=== PATIENT | female | born 1995 | race Two or more races ===

== ENCOUNTER 2020-10-13 22:49 | Inpatient (IN) | payer OTHER ==
[~2020-10-13] VITALS: Ht 149.9 cm; Wt 47.0 kg
[2020-10-14] VITALS (17 sets, daily range): BP systolic 101–129; BP diastolic 60–93
[2020-10-14 00:21] LABS: BASO % 0.3 % (0.0-1.0); HEMATOCRIT 36.6 % (36.0-47.0); LYMPH # 4.6 10^3/uL (1.5-5.0); LYMPH % 40.8 % (24.0-44.0); MEAN CORPUSCULAR HEMOGLOBIN 30.8 pg (27.0-33.0); MEAN CORPUSCULAR HGB CONC 35.5 g/dl (32.0-36.5); MEAN CORPUSCULAR VOLUME 86.7 fl (80.0-96.0); MONO # 1.2 10^3/uL (0.0-0.8); MONO % 10.2 % (0.0-5.0); NEUTROPHILS # 5.5 10^3/uL (1.5-8.5); NEUTROPHILS % 48.3 % (36.0-66.0); RED BLOOD COUNT 4.22 10^6/uL (4.00-5.40); WHITE BLOOD COUNT 11.3 10^3/uL (4.0-10.0)
[2020-10-14 00:35] LABS: INR 1.01; PROTHROMBIN TIME 13.5 SECONDS (12.5-14.3)
[2020-10-14 00:36] LABS: PARTIAL THROMBOPLASTIN TIME 29.9 SECONDS (24.2-38.5)
[2020-10-14 00:39] LABS: PLATELET COUNT, AUTOMATED 2 10^3/uL (150-450)
[2020-10-14 00:43] LABS: BLOOD UREA NITROGEN 13 MG/DL (7-18); CARBON DIOXIDE LEVEL 30 MEQ/L (21-32); CHLORIDE LEVEL 103 MEQ/L (98-107); CREATININE FOR GFR 0.58 MG/DL (0.55-1.30); GLOMERULAR FILTRATION RATE > 60.0 (>60); GLUCOSE, FASTING 100 MG/DL (70-100); HCG, SERUM QUALITATIVE NEGATIVE (NEGATIVE); POTASSIUM SERUM 4.1 MEQ/L (3.5-5.1); SODIUM LEVEL 139 MEQ/L (136-145)
[2020-10-14] MEDS ORDERED: dexameTHASONE 20MG/5ML VIAL (J1100 PER 1MG) IV ONE (01:30)
[2020-10-14] MEDS ORDERED: MOM 30ML SUSPENSION UDC PO PRN (02:00)
[2020-10-14] MEDS ORDERED: MAALOX 30 ML SUSP *UDC PO PRN (02:00)
[2020-10-14] MEDS ORDERED: ACETAMINOPHEN TAB 650MG DOSE (2X325MG) PO PRN (02:00)
--- NOTE | 2020-10-14 02:02 | HPEPDOC ---
[facility] Medical History & Physical Date of Admission Oct 14, 2020 Date of Service: Oct 14, 2020 Attending Physician: JOHNATHAN ARELLANO MD History and Physical TIME OF SERVICE: 2:55 AM CHIEF COMPLAINT: Bleeding nose and gums HISTORY OF PRESENT ILLNESS: History was obtained from the patient's mother because the patient has a developmental disability. This 25-year-old female has a history of thrombocytopenia. According to the patient's mother she's had 3 other major episodes of bleeding nose and gums. This first episode occurred while they were living in [place] and the patient had to be hospitalized for over a month. During the second episode, the patient had bruising and was hospitalized for short period of time in the [facility]. The third time the patient was treated on an outpatient basis at a facility in [place]. The patient's mother was unable to provide additional details or definitive diagnosis. REVIEW OF SYSTEMS: 12 point review of systems negative except as listed in HPI PAST MEDICAL/ SURGICAL HISTORY: Thrombocytopenia. Developed mental disability "Large kidney" Tooth extraction SOCIAL HISTORY: She doesn't smoke, drink or use recreational drugs FAMILY HISTORY: The patient's mother has had a DVT. Mitral valve repair, coronary artery disease, asthma, type 2 diabetes and CVA ALLERGIES: Please see below HOME MEDICATIONS: Please see below PHYSICAL EXAMINATION: VITAL SIGNS: Please see below GEN: well-nourished / well developed/ slightly anxious INTEGUMENT: not flushed HEENT: Lips and nares are covered with small amounts of blood CVS: RRR/NMRG/ radial pulses intact / no lower extremity edema LUNGS: lungs are clear to auscultation bilaterally on room air ABDOMEN: Contour (flat) / soft & she doesn't grimace with palpation MSK/EXTREMITIES: NCAT PSYCH: alert LABORATORY DATA: See below. IMAGING: Ultrasound of the abdomen "IMPRESSION: 1. Mild splenomegaly. 2. Possible cyst or dilated calyx in the left kidney. " MICROBIOLOGY: Please see below. ASSESSMENT: Ms. 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 PLAN: 1. Thrombocytopenia She has splenomegaly , but doesn't have coexisting anemia Plan: Admit to medical floor/2 units of platelets have been ordered/ Dr. Bello discussed the case with Dr. Duncan, who recommended platelets, IVIG 1 g/kg, Decadron 14 mg IV daily, and will see the patient tomorrow 2. Epistaxis Unable to order tranexamic acid because there is is a family history of DVT DVT PROPHYLAXIS: SCDs DISPOSITION: home after more than 2 midnight's stay Vital Signs Vital Signs Date Time Temp Pulse Resp B/P (MAP) Pulse Ox O2 Delivery O2 Flow Rate FiO2 10/13/20 23:15 10/13/20 22:51 98.7 87 16 99 Room Air Laboratory Data Labs 24H Laboratory Tests 2 10/14/20 00:07: Immature Granulocyte % (Auto) 0.4, Neutrophils (%) (Auto) 48.3, Lymphocytes (%) (Auto) 40.8, Monocytes (%) (Auto) 10.2H, Eosinophils (%) (Auto) 0.0, Basophils (%) (Auto) 0.3, Neutrophils # (Auto) 5.5, Lymphocytes # (Auto) 4.6, Monocytes # (Auto) 1.2H, Eosinophils # (Auto) 0.0, Basophils # (Auto) 0.0, Nucleated Red Blood Cells % (auto) 0.0, Immature Platelet Fraction 10.5H, Prothrombin Time 13.5, Prothromb Time International Ratio 1.01, Activated Partial Thromboplast Time 29.9, Anion Gap 6L, Glomerular Filtration Rate > 60.0, Calcium Level 9.0, Human Chorionic Gonadotropin, Qual NEGATIVE CBC/BMP Laboratory Tests 10/14/20 00:07 Home Medications Scheduled Dexamethasone (Dexamethasone) 4 Mg Tablet, 40 MG PO ASDIRECTED 10 tabs once on 10/17/20 Allergies Coded Allergies: No Known Allergies (Unverified , 10/13/20) A-FIB/CHADSVASC A-FIB History Current/History of A-Fib/PAF?: No Current PO Anticoag Therapy: No JOHNATHAN ARELLANO MD Oct 14, 2020 02:01
--- NOTE | 2020-10-14 02:45 | REPVR ---
PROCEDURE INFORMATION: Exam: US Abdomen; Limited Exam date and time: 10/14/2020 1:55 AM Age: 25 years old Clinical indication: Abnormal findings; Abnormal lab test; Other: Thrombocytopenia; Additional info: Thrombocytopenia, evaluation of spleen. TECHNIQUE: Imaging protocol: US abdomen. Real time ultrasound with image documentation. Limited exam focused on the region of clinical interest. COMPARISON: No relevant prior studies available. FINDINGS: Left kidney: Small cyst or dilated calyx in the lower pole of the left kidney measuring 1.5 cm. Left kidney is otherwise not well visualized due to overlying bowel gas. Spleen: Spleen is mildly enlarged measuring 9.1 x 7.7 x 8.9 cm with splenic volume of approximately 625 cc. IMPRESSION: 1. Mild splenomegaly. 2. Possible cyst or dilated calyx in the left kidney. COMMENTS: Consistent with the [employer]'s Incidental Findings Committee white paper (J Am Simba Radiol 2018): Any incidental renal lesion less than 1 cm or classified as too small to characterize, or any incidental cystic renal lesion characterized as simple-appearing, is likely benign. No follow-up imaging is recommended for these lesions per consensus recommendations based on imaging criteria. Electronically signed by: Chun Easton On 10/14/2020 02:45:24 AM
[2020-10-14] MEDS ORDERED: IMMUNE GLOBULIN 10% 10 GM, IMMUNE GLOBULIN 10% 40 GM in IV 1 EA IV ONE (03:00)
[2020-10-14 03:27] LABS: RSV AMPLIFICATION NEGATIVE (NEGATIVE)
[2020-10-14 06:34] LABS: HEMATOCRIT 35.6 % (36.0-47.0); HEMOGLOBIN 12.8 g/dl (12.0-15.5); MEAN CORPUSCULAR HEMOGLOBIN 31.4 pg (27.0-33.0); MEAN CORPUSCULAR VOLUME 87.3 fl (80.0-96.0); RED BLOOD COUNT 4.08 10^6/uL (4.00-5.40); WHITE BLOOD COUNT 24.8 10^3/uL (4.0-10.0)
[2020-10-14 06:36] LABS: PLATELET COUNT, AUTOMATED 6 10^3/uL (150-450)
[2020-10-14 07:05] LABS: ALBUMIN 4.1 GM/DL (3.2-5.2); ALT/SGPT 25 U/L (12-78); BILIRUBIN,TOTAL 0.7 MG/DL (0.2-1.0); BLOOD UREA NITROGEN 13 MG/DL (7-18); CALCIUM LEVEL 8.7 MG/DL (8.5-10.1); CARBON DIOXIDE LEVEL 29 MEQ/L (21-32); CHLORIDE LEVEL 103 MEQ/L (98-107); CREATININE FOR GFR 0.59 MG/DL (0.55-1.30); GLOMERULAR FILTRATION RATE > 60.0 (>60); GLUCOSE, FASTING 106 MG/DL (70-100); POTASSIUM SERUM 3.6 MEQ/L (3.5-5.1); SODIUM LEVEL 140 MEQ/L (136-145); TOTAL PROTEIN 7.1 GM/DL (6.4-8.2)
--- NOTE | 2020-10-14 11:38 | IPNPDOC ---
Text Note Date of Service The patient was seen on 10/14/20. NOTE SUBJECTIVE: Sitting up in bed having breakfast. Being fed by grandmom, calm and cooperative. Epistaxis and oral bleeding seems to have stopped. PHYSICAL EXAMINATION: VITAL SIGNS: Please see below. GEN: well-nourished / well developed INTEGUMENT: not flushed HEENT: NC/AT moist mucous membranes, no oral bleeding. No epistaxis. CVS: RRR/NMRG/ radial pulses intact / no lower extremity edema LUNGS: lungs are clear to auscultation bilaterally on room air ABDOMEN: Contour (flat) / soft & she doesn't grimace with palpation MSK/EXTREMITIES: NCAT PSYCH: alert LABORATORY DATA: See below. IMAGING: Ultrasound of the abdomen "IMPRESSION: 1. Mild splenomegaly. 2. Possible cyst or dilated calyx in the left kidney. " ASSESSMENT: Ms. 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 ITP with severe thrombocytopenia. She has splenomegaly , but doesn't have coexisting doesn't have anemia Dr. Bello discussed the case with Dr. Duncan, who recommended platelets, IVIG 1 g/kg ( 50 gm) x 2 doses. dexamethasone 40 mg, po daily x 4 days Will give dexa 1v as patient has trouble swallowing too many pills. Dr Duncan to see. Intellectual disability As per grandmom has the metal ability of a 9 year old. DVT prophylaxis: Early ambulation. VS,Fishbone, I+O VS, Fishbone, I+O Laboratory Tests 10/14/20 00:07 10/14/20 05:40 Vital Signs Date Time Temp Pulse Resp B/P (MAP) Pulse Ox O2 Delivery O2 Flow Rate FiO2 10/14/20 10:05 97.7 99 16 126/90 (102) 100 Room Air I&O- Last 24 Hours up to 6 AM 10/14/20 06:00 Intake Total 200 ml Balance 200 ml SHANTELL MTZ MD Oct 14, 2020 11:38
[2020-10-14] MEDS: dexameTHASONE 20MG/5ML VIAL (J1100 PER 1MG) IV SCH (14:11)
--- NOTE | 2020-10-14 19:22 | CR.PDOC ---
General Date of Consultation: Oct 14, 2020 Referring Provider: KD ENRIQUEZ DO Attending Physician: SHANTELL MTZ MD Consultation REASON FOR CONSULTATION/CHIEF COMPLAINT: Profound thrombocytopenia. HISTORY OF PRESENT ILLNESS: Ms. Paige Gardner is a 25-year-old woman, nonverbal with autism and cognitive dysfunction who is under the care of her paternal grandmother. She presented with epistaxis and gum bleeding on the day of admission. Her grandmother reports that the patient was treated for thrombocytopenia in 2011 and in 2016. On these 2 occasions, she was admitted to hospital for signi ficant thrombocytopenia. She was being followed regularly by her doctor in [place] after the last admission, and apparently blood counts have been fine. The patient and her grandmother moved to this area in summer of this year 2019, but has not seen a doctor since moving to this area. On admission, platelet count was noted to be 2 k/UL with a normal hemoglobin level and mild leukocytosis. She is currently admitted for this. She received platelet transfusion early this morning. Her grandmother reports that gum bleeding and epistaxis have resolved since admission. ALLERGIES: Please see below. HOME MEDICATIONS: Please see below. PAST MEDICAL HISTORY: Autism. Nonverbal. Cognitive dysfunction. PAST SURGICAL HISTORY: Dental extraction. FAMILY HISTORY: Paternal uncle has sickle cell. Family history on mother's side unknown. SOCIAL HISTORY: Lives with paternal grandmother and paternal uncle. Needs complete supervision of day-to-day activities. Paternal grandmother serves as caregiver. REVIEW OF SYSTEMS: History obtained from grandmother as patient is nonverbal. CONSTITUTIONAL: No fever. No night sweats. Good appetite. No chills. HEENT: Noted epistaxis and gum bleeding recently. No headaches. According to grandmother. CARDIOVASCULAR: No chest pains. RESPIRATORY: No cough. No shortness of breath. GENITOURINARY: No hematuria. The patient has not been noted to have menarche. MUSCULOSKELETAL: No joint or muscle achiness. GASTROINTESTINAL: No nausea nor vomiting. No constipation. No diarrhea. No abdominal pains. SKIN: No easy bruising. No skin rash. NEUROLOGICAL: No change in mental status. PSYCHIATRIC: No anxiety noted. HEMATOLOGIC/LYMPHATIC: Epistaxis and gum bleeding noted on day of admission. These have resolved since that time. . PHYSICAL EXAMINATION: VITAL SIGNS: Please see below. GENERAL APPEARANCE: Lying in bed, comfortable, able to follow simple instructions as given by grandmother. HEENT: Pinkish conjunctiva, anicteric sclerae. Atraumatic. Small area of dried blood on gums. No active bleeding on nares. RESPIRATORY: Lungs are clear. No rales, no rhonchi, no least. CARDIOVASCULAR: S1, S2, regular but slightly tachycardic. No murmur. No gallop. ABDOMEN: Soft, nontender, no guarding. Positive bowel sounds. No hepatosplenomegaly palpable. EXTREMITIES: No calf swelling, no calf tenderness, no pedal edema. No ecchymoses. No petechiae. NEUROLOGICAL: Alert, nonverbal. PSYCHIATRIC: Did not express anxiety, although was moaning at times in bed. LABORATORY DATA: Please see below. ASSESSMENT/PLAN: Significant thrombocytopenia with normal hemoglobin level and very mild leukocytosis. Likely ITP. PT, PTT normal. Kidney function normal. Peripheral smear review 10/14/2020 showed severe thrombocytopenia with erythrocytes appearing normal and leukocytosis associated with monocytosis. Abdominal ultrasound 10/14/2020 showed mildly enlarged spleen measuring 9.1 x 7 .7 x 8.9 cm. IVIG has been started. To be given for 2 days only at 1 g/kg each day. Dexamethasone has also been started. Correct dose is Dexamethasone 40 mg by mouth daily X4 days only. Continue daily CBC/platelet monitoring. Transfuse for platelet count less than 10. Expect platelet count to improve within the next few days, but may consider a bone marrow aspiration and biopsy if platelet count does not improve with IVIG and pulse dexamethasone. We will arrange a follow-up appointment as an outpatient once patient is discharged. Thank you for referring Ms. Paige Garnder. Vital Signs/I&O Vital Signs Date Time Temp Pulse Resp B/P (MAP) Pulse Ox O2 Delivery O2 Flow Rate FiO2 10/14/20 14:00 98.4 111 18 115/60 (78) 99 Room Air I&O- Last 24 Hours up to 6 AM 10/14/20 06:00 Intake Total 200 ml Balance 200 ml Laboratory Data Labs 24H Laboratory Tests 2 10/14/20 00:07: Immature Granulocyte % (Auto) 0.4, Neutrophils (%) (Auto) 48.3, Lymphocytes (%) (Auto) 40.8, Monocytes (%) (Auto) 10.2H, Eosinophils (%) (Auto) 0.0, Basophils (%) (Auto) 0.3, Neutrophils # (Auto) 5.5, Lymphocytes # (Auto) 4.6, Monocytes # (Auto) 1.2H, Eosinophils # (Auto) 0.0, Basophils # (Auto) 0.0, Nucleated Red Blood Cells % (auto) 0.0, Immature Platelet Fraction 10.5H, Prothrombin Time 13.5, Prothromb Time International Ratio 1.01, Activated Partial Thromboplast Ti me 29.9, Anion Gap 6L, Glomerular Filtration Rate > 60.0, Calcium Level 9.0, Human Chorionic Gonadotropin, Qual NEGATIVE 10/14/20 02:43: Coronavirus (COVID-19)(PCR) NEGATIVE, Influenza Type A (RT-PCR) NEGATIVE, Influenza Type B (RT-PCR) NEGATIVE, Respiratory Syncytial Virus (PCR) NEGATIVE 10/14/20 05:40: Nucleated Red Blood Cells % (auto) 0.0, Anion Gap 8, Glomerular Filtration Rate > 60.0, Calcium Level 8.7, Differential Slide Review Report, Peripheral Blood Smear Path Consult PERIPHERAL SMEAR, Total Bilirubin 0.7, Aspartate Amino Transf (AST/SGOT) 18, Alanine Aminotransferase (ALT/SGPT) 25, Alkaline Phosphatase 80, Total Protein 7.1, Albumin 4.1, Albumin/Globulin Ratio 1.4 CBC/BMP Laboratory Tests 10/14/20 00:07 10/14/20 05:40 Allergies Coded Allergies: No Known Allergies (Unverified , 10/13/20) Home Medications No Active Prescriptions or Reported Meds MACIEJ CHAVEZ MD Oct 14, 2020 19:22
[2020-10-15] VITALS (16 sets, daily range): BP systolic 113–138; BP diastolic 47–93
[2020-10-15] MEDS ORDERED: IMMUNE GLOBULIN 10% 0 GM in IV 1 EA IV ONE (05:00)
[2020-10-15 06:38] LABS: HEMATOCRIT 32.2 % (36.0-47.0); MEAN CORPUSCULAR HEMOGLOBIN 30.2 pg (27.0-33.0); MEAN CORPUSCULAR HGB CONC 34.2 g/dl (32.0-36.5); MEAN CORPUSCULAR VOLUME 88.5 fl (80.0-96.0); RED BLOOD COUNT 3.64 10^6/uL (4.00-5.40); WHITE BLOOD COUNT 22.5 10^3/uL (4.0-10.0)
[2020-10-15 06:39] LABS: PLATELET COUNT, AUTOMATED 18 10^3/uL (150-450)
[2020-10-15 06:59] LABS: BLOOD UREA NITROGEN 16 MG/DL (7-18); CALCIUM LEVEL 8.8 MG/DL (8.5-10.1); CARBON DIOXIDE LEVEL 29 MEQ/L (21-32); CHLORIDE LEVEL 109 MEQ/L (98-107); CREATININE FOR GFR 0.81 MG/DL (0.55-1.30); GLOMERULAR FILTRATION RATE > 60.0 (>60); GLUCOSE, FASTING 263 MG/DL (70-100); POTASSIUM SERUM 3.4 MEQ/L (3.5-5.1); SODIUM LEVEL 143 MEQ/L (136-145)
[2020-10-15] MEDS ORDERED: IMMUNE GLOBULIN 10% 10 GM, IMMUNE GLOBULIN 10% 40 GM in IV 1 EA IV ONE (09:00)
[2020-10-15] MEDS ORDERED: POTASSIUM CHLORIDE 10 MEQ SR TABLET PO ONE (09:00)
[2020-10-15] MEDS ORDERED: dexameTHASONE 20MG/5ML VIAL (J1100 PER 1MG) IV SCH (09:00)
[2020-10-15] MEDS ORDERED: LIDOCAINE 1% MDV 20ML VIAL As Ordered ONE (11:49)
[2020-10-15] MEDS: SODIUM CHLORIDE 0.9% INJ 10 ML SYR IV SCH (12:45)
[2020-10-15] MEDS ORDERED: SODIUM CHLORIDE 0.9% INJ 10 ML SYR IV PRN (12:45)
--- NOTE | 2020-10-15 13:05 | IPNPDOC ---
Text Note Date of Service The patient was seen on 10/15/20. NOTE SUBJECTIVE: Lost IV access. ledy has not yet got the second dose fo the IVIG. No gum bleeding or epistaxis. platelet up to 18K. PHYSICAL EXAMINATION: VITAL SIGNS: Please see below. GEN: well-nourished / well developed INTEGUMENT: not flushed HEENT: NC/AT moist mucous membranes, no oral bleeding. No epistaxis. CVS: RRR/NMRG/ radial pulses intact / no lower extremity edema LUNGS: lungs are clear to auscultation bilaterally on room air ABDOMEN: Contour (flat) / soft & she doesn't grimace with palpation MSK/EXTREMITIES: NCAT PSYCH: alert LABORATORY DATA: See below. IMAGING: Ultrasound of the abdomen "IMPRESSION: 1. Mild splenomegaly. 2. Possible cyst or dilated calyx in the left kidney. " ASSESSMENT: Ms. 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 ITP with severe thrombocytopenia. She has splenomegaly , but doesn't have coexisting doesn't have anemia Dr. Bello discussed the case with Dr. Duncan, who recommended platelets, IVIG 1 g/kg ( 50 gm) x 2 doses. dexamethasone 40 mg, po daily x 4 days Will give dexa iv as patient has trouble swallowing too many pills. Appreciated Dr Duncan's input. Intellectual disability As per grandmom has the mental ability of a 9 year old. DVT prophylaxis: Early ambulation. VS,Fishbone, I+O VS, Fishbone, I+O Laboratory Tests 10/15/20 05:54 Vital Signs Date Time Temp Pulse Resp B/P (MAP) Pulse Ox O2 Delivery O2 Flow Rate FiO2 10/15/20 11:36 98.5 87 20 99 Room Air 10/15/20 10:00 123/74 (90) I&O- Last 24 Hours up to 6 AM 10/15/20 06:00 Intake Total 1540 ml Output Total 0 ml Balance 1540 ml SHANTELL MTZ MD Oct 15, 2020 13:05
[2020-10-15] MEDS: dexameTHASONE 20MG/5ML VIAL (J1100 PER 1MG) IV SCH (14:09)
[2020-10-15] MEDS ORDERED: POTASSIUM CHLORIDE 10% LIQ 20 MEQ/15 ML UDC PO ONE (14:15)
--- NOTE | 2020-10-15 16:52 | REP ---
PROCEDURE NAME: MIDLINE INSERTION W/ SITERITE CLINICAL INFORMATION: No IV access. COMPARISON: None. PROCEDURE DESCRIPTION: The procedure was performed by SHRUTI Valdez, under the direct supervision of Dr. Reid. The risks and benefits of the procedure were explained to the patient and an informed consent was obtained both verbally and written. Directly prior to the start of the procedure a formal time-out was completed in the procedure room. The left basilic vein was localized using ultrasound guidance. The skin was prepped and draped in sterile fashion. One mL of 1% lidocaine 10 mg/mL was used as a local anesthetic. Using ultrasound guidance the left basilic vein was cannulated, and a 0.018 guidewire was inserted. The needle was removed and a 5.5 Polish dilator and peel-away sheath was inserted over the guidewire. A 5.5 Polish dual lumen catheter was cut to a length of 8 cm. The dilator was removed and the catheter was inserted over the guidewire. The peel-away sheath was removed and the catheter was flushed with heparinized saline as per hospital protocol. The catheter was affixed to the skin and a sterile dressing was applied. The patient tolerated the procedure well and there were no immediate complications. CONCLUSION: Mid line insertion into the left basilic vein. <Electronically signed by Elli Ríos > 10/15/20 [id number] <Electronically signed by Gael Reid > 10/15/20 [id number]
[2020-10-16 02:00] VITALS: BP 131/68
[2020-10-16 06:00] VITALS: BP 127/75
[2020-10-16 08:57] LABS: BASO % 0.1 % (0.0-1.0); HEMATOCRIT 32.6 % (36.0-47.0); HEMOGLOBIN 10.9 g/dl (12.0-15.5); LYMPH # 1.7 10^3/uL (1.5-5.0); LYMPH % 8.7 % (24.0-44.0); MEAN CORPUSCULAR HEMOGLOBIN 29.9 pg (27.0-33.0); MEAN CORPUSCULAR HGB CONC 33.4 g/dl (32.0-36.5); MEAN CORPUSCULAR VOLUME 89.6 fl (80.0-96.0); MONO # 0.8 10^3/uL (0.0-0.8); MONO % 3.9 % (0.0-5.0); RED BLOOD COUNT 3.64 10^6/uL (4.00-5.40); WHITE BLOOD COUNT 19.8 10^3/uL (4.0-10.0)
[2020-10-16 09:01] LABS: PLATELET COUNT, AUTOMATED 52 10^3/uL (150-450)
[2020-10-16 09:24] LABS: BLOOD UREA NITROGEN 13 MG/DL (7-18); CARBON DIOXIDE LEVEL 30 MEQ/L (21-32); CHLORIDE LEVEL 101 MEQ/L (98-107); CREATININE FOR GFR 0.75 MG/DL (0.55-1.30); GLOMERULAR FILTRATION RATE > 60.0 (>60); GLUCOSE, FASTING 163 MG/DL (70-100); POTASSIUM SERUM 4.3 MEQ/L (3.5-5.1); SODIUM LEVEL 135 MEQ/L (136-145)
[2020-10-16 10:25] VITALS: BP 131/86
[2020-10-16] MEDS ORDERED: DEXA4TA PO (11:54)
[2020-10-16] MEDS ORDERED: dexameTHASONE 20MG/5ML VIAL (J1100 PER 1MG) IV ONE (12:00)
[2020-10-16] MEDS: SODIUM CHLORIDE 0.9% INJ 10 ML SYR IV SCH (12:48)
--- NOTE | 2020-10-16 16:25 | DS.PDOC ---
Discharge Summary General Date of Admission Oct 14, 2020 at 02:10 Date of Discharge 10/16/20 Discharge Summary PROCEDURES PERFORMED DURING STAY: [None]. DISCHARGE DIAGNOSES: ITP Intellectual disability COMPLICATIONS/CHIEF COMPLAINT: Thrombocytopenia. HOSPITAL COURSE: Ms. 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 ITP with severe thrombocytopenia. She has splenomegaly , but doesn't have coexisting doesn't have anemia Received platelets, IVIG 1 g/kg ( 50 gm) x 2 doses. dexamethasone 40 mg, po daily x [address] Duncan's input. Intellectual disability As per grandmom has the mental ability of a 9 year old. DISCHARGE MEDICATIONS: Please see below. ALLERGIES: Please see below. PHYSICAL EXAMINATION ON DISCHARGE: VITAL SIGNS: Please see below. GEN: well-nourished / well developed INTEGUMENT: not flushed HEENT: NC/AT moist mucous membranes, no oral bleeding. No epistaxis. CVS: RRR/NMRG/ radial pulses intact / no lower extremity edema LUNGS: lungs are clear to auscultation bilaterally on room air ABDOMEN: Contour (flat) / soft & she doesn't grimace with palpation MSK/EXTREMITIES: NCAT PSYCH: alert LABORATORY DATA: Please see below. IMAGING: Ultrasound of the abdomen "IMPRESSION: 1. Mild splenomegaly. 2. Possible cyst or dilated calyx in the left kidney. " ACTIVITY: [As tolerated]. DIET: As tolerated DISPOSITION: 01 Home, Self-Care. DISCHARGE INSTRUCTIONS: Follow up Dr Duncan in 2 weeks PMD in 1 week DISCHARGE CONDITION: [Stable]. TIME SPENT ON DISCHARGE: 35 minutes. Vital Signs/I&Os Vital Signs Date Time Temp Pulse Resp B/P (MAP) Pulse Ox O2 Delivery O2 Flow Rate FiO2 10/16/20 10:25 97.7 58 20 131/86 (101) 100 Room Air I&O- Last 24 Hours up to 6 AM 10/16/20 06:00 Intake Total 470 ml Balance 470 ml Laboratory Data Labs 24H Laboratory Tests 2 10/16/20 08:16: Immature Granulocyte % (Auto) 1.3, Neutrophils (%) (Auto) 86.0H, Lymphocytes (%) (Auto) 8.7L, Monocytes (%) (Auto) 3.9, Eosinophils (%) (Auto) 0.0, Basophils (%) (Auto) 0.1, Neutrophils # (Auto) 17.0H, Lymphocytes # (Auto) 1.7, Monocytes # (Auto) 0.8, Eosinophils # (Auto) 0.0, Basophils # (Auto) 0.0, Nucleated Red Blood Cells % (auto) 0.0, Immature Platelet Fraction 15.9H, Anion Gap 4L, Glomerular Filtration Rate > 60.0, Calcium Level 9.0 CBC/BMP Laboratory Tests 10/16/20 08:16 Discharge Medications Scheduled Prednisone (Prednisone) 20 Mg Tablet, 20 MG PO DAILY Allergies Coded Allergies: No Known Allergies (Unverified , 10/13/20) SHANTELL MTZ MD Oct 16, 2020 16:25
[2020-11-20] MEDS ORDERED: FAMO1TAB25 PO (16:15)
[2020-11-20] MEDS ORDERED: PRED20TA PO (16:15)
[2020-12-05] MEDS ORDERED: PRED5TA PO (10:35)
== END 2020-10-16 13:36 | disposition home or self-care (01) | DRG 661 ==
LOC: M ED 22:49 → M ED INP 10-14 02:10 → M MSPAV 10-14 05:15
PROVIDERS: ADMIT Internal Medicine; ATTEND Internal Medicine Nephrology
PROC: 30233R1 Transfusion of Nonautologous Platelets into Peripheral Vein, Percutaneous Approach (ICD-10-PCS; 2020-10-14)
PROC: 05HC33Z Insertion of Infusion Device into Left Basilic Vein, Percutaneous Approach (ICD-10-PCS; principal; 2020-10-15 11:44)
DX: D69.3 Immune thrombocytopenic purpura (principal); F84.0 Autistic disorder; R04.0 Epistaxis; F79 Unspecified intellectual disabilities; Z79.899 Other long term (current) drug therapy; R16.1 Splenomegaly, not elsewhere classified; Z20.828 Contact with and (suspected) exposure to other viral communicable diseases

== ENCOUNTER 2020-10-25 10:26 | Inpatient (IN) | payer OTHER ==
[2020-10-25] VITALS (13 sets, daily range): BP systolic 117–132; BP diastolic 56–81
[~2020-10-25] VITALS: Ht 127 cm; Wt 47.1 kg
[~2020-10-25 10:26] MED LIST: DEXA4TA PO
[2020-10-25 11:19] LABS: HEMATOCRIT 39.5 % (36.0-47.0); HEMOGLOBIN 13.6 g/dl (12.0-15.5); MEAN CORPUSCULAR HEMOGLOBIN 30.8 pg (27.0-33.0); MEAN CORPUSCULAR HGB CONC 34.4 g/dl (32.0-36.5); MEAN CORPUSCULAR VOLUME 89.4 fl (80.0-96.0); RED BLOOD COUNT 4.42 10^6/uL (4.00-5.40); WHITE BLOOD COUNT 8.8 10^3/uL (4.0-10.0)
[2020-10-25 12:04] LABS: PLATELET COUNT, AUTOMATED 1 10^3/uL (150-450)
[2020-10-25 12:44] LABS: BLOOD UREA NITROGEN 14 MG/DL (7-18); CARBON DIOXIDE LEVEL 29 MEQ/L (21-32); CHLORIDE LEVEL 103 MEQ/L (98-107); CREATININE FOR GFR 0.74 MG/DL (0.55-1.30); GLOMERULAR FILTRATION RATE > 60.0 (>60); GLUCOSE, FASTING 88 MG/DL (70-100); INR 1.01; PROTHROMBIN TIME 13.5 SECONDS (12.5-14.3); SODIUM LEVEL 137 MEQ/L (136-145)
[2020-10-25 12:45] LABS: CALCIUM LEVEL 8.8 MG/DL (8.5-10.1); PARTIAL THROMBOPLASTIN TIME 27.7 SECONDS (24.2-38.5)
[2020-10-25] MEDS ORDERED: NS 1,000 ML IV SCH (13:28)
[2020-10-25] MEDS ORDERED: IMMUNE GLOBULIN 10% 0 GM in IV 1 EA IV SCH (13:30)
--- NOTE | 2020-10-25 16:12 | HPEPDOC ---
General Date of Admission Oct 25, 2020 at 13:23 Date of Service: Oct 25, 2020 Chief Complaint The patient is a 25-year-old female admitted with a reason for visit of Thrombocytopenia. Source: Family History of Present Illness Mrs. Gardner is a 25-year-old female with intellectual disability and ITP who presents to the ED for bleeding in the gums and epistaxis. Patient was recently hospitalized from October 14 to October 16 for thrombocytopenia of 2. Hematology/oncology, Dr. Duncan, saw the patient and recommended dexamethasone, IVIG, and platelet transfusion if platelets is below 10. Workup at that time did provide a mild splenomegaly. Patient was discharged on 10/16/2020. She did okay until this morning. She woke up to find blood on the pillowcase. She was bleedin g from the gums and nose per grandmother. She was brought back to the ED. She is found to have a platelet count of 1. I spoke with the projection welding machine operator/oncologist sponsorship manager, Dr. Cheney. Recommended dexamethasone, IVIG, and platelet transfusion. He also said no chemical prophylaxis but mechanical was okay. When I saw the patient, she was grunting. Grandmother was present who provided most of the history. Bleeding appeared to have stopped and now dry. Patient to be admitted for ITP Home Medications No Active Prescriptions or Reported Meds Allergies Coded Allergies: No Known Allergies (Unverified , 10/13/20) Past Medical History Medical History 1. ITP 2. Autism/intellectual disability Surgical History 1. Tooth extraction Family History Mother: History of DVT, MVR, CAD, asthma, DM2, and CVA Social History * Smoker: Denies Alcohol: Denies Drugs: denies A-FIB/CHADSVASC A-FIB History Current/History of A-Fib/PAF?: No Review of Systems Constitutional: Denies: Fever Eyes: Denies: Eyelid inflammation ENT: Reports: Epistaxis Skin: Reports: Bruising Pulmonary: Denies: Dyspnea Cardiovascular: Denies: Chest Pain Gastrointestinal: Denies: Vomiting Hematologic: Reports: Bleeding Excessively Musculoskeletal: Denies: Muscle Pain Psych: Denies: Mood Normal (Prior more happy, now more lethargic) Physical Examination General Exam: Negative: Cooperative Eye Exam: Positive: Sclera icteric Neck Exam: Positive: Supple Chest Exam: Positive: Clear to auscultation; Negative: Rales, Rhonchi, Wheezing Heart Exam: Positive: Rate Normal, Regular Rhythm Abdomen Exam: Positive: Normal bowel sounds, Soft; Negative: Tenderness Extremity Exam: Negative: Edema Psych Exam: Negative: Mental status NL Vital Signs Vital Signs Date Time Temp Pulse Resp B/P (MAP) Pulse Ox O2 Delivery O2 Flow Rate FiO2 10/25/20 12:04 10/25/20 10:28 97.8 90 18 99 Room Air Laboratory Data Labs 24H Laboratory Tests 2 10/25/20 11:08: Nucleated Red Blood Cells % (auto) 0.0, Immature Platelet Fraction 3.7 10/25/20 11:16: Prothrombin Time 13.5, Prothromb Time International Ratio 1.01, Activated Partial Thromboplast Time 27.7, Anion Gap 5L, Glomerular Filtration Rate > 60.0, Calcium Level 8.8 10/25/20 12:59: Coronavirus (COVID-19)(PCR) NEGATIVE CBC/BMP Laboratory Tests 10/25/20 11:08 10/25/20 11:16 Assessment/Plan Mrs. Gardner is a 25-year-old female with intellectual disability and ITP who presents to the ED for bleeding in the gums and epistaxis. Plates were low at 1. Spoke with hematology/oncology. Recommended IVIG x2 days, dexamethasone x4 days, and platelet transfusion. Otherwise pending improvement in platelet function Plan / VTE VTE Prophylaxis Ordered?: No VTE Exclusion Mechanical Proph: Other (Severe thrombocytopenia, will wait for platelets to improve before trying mechanical ppx) VTE Exclusion Pharmacological: Active Bleeding Plan Plan 1. ITP with severe thrombocytopenia -Platelet on admission was 1 -Spoke with hematology/oncology, recommendations appreciated -Recommended IVIG x2 days, dexamethasone x4 days, and platelet transfusion if <10 2. Intellectual disability -Grandmother cares for her 3. DVT ppx -No chemical ppx due to severe thrombocytopenia. Initially considered SCD and TEDs, but will wait until platelet level improve MAXINE KING DO Oct 25, 2020 14:28
[2020-10-25] MEDS: IMMUNE GLOBULIN 10% 10 GM in IV 1 EA IV SCH (18:44)
[2020-10-25] MEDS: IMMUNE GLOBULIN 10% 40 GM in IV 1 EA IV SCH (21:08)
[2020-10-26] VITALS (22 sets, daily range): BP systolic 120–143; BP diastolic 58–90
[2020-10-26 05:56] LABS: HEMATOCRIT 34.8 % (36.0-47.0); HEMOGLOBIN 11.9 g/dl (12.0-15.5); MEAN CORPUSCULAR HEMOGLOBIN 30.1 pg (27.0-33.0); MEAN CORPUSCULAR HGB CONC 34.2 g/dl (32.0-36.5); MEAN CORPUSCULAR VOLUME 88.1 fl (80.0-96.0); RED BLOOD COUNT 3.95 10^6/uL (4.00-5.40); WHITE BLOOD COUNT 16.3 10^3/uL (4.0-10.0)
[2020-10-26 05:59] LABS: PLATELET COUNT, AUTOMATED 2 10^3/uL (150-450)
[2020-10-26 06:28] LABS: BLOOD UREA NITROGEN 16 MG/DL (7-18); CALCIUM LEVEL 9.1 MG/DL (8.5-10.1); CARBON DIOXIDE LEVEL 26 MEQ/L (21-32); CHLORIDE LEVEL 102 MEQ/L (98-107); CREATININE FOR GFR 0.88 MG/DL (0.55-1.30); GLOMERULAR FILTRATION RATE > 60.0 (>60); GLUCOSE, FASTING 263 MG/DL (70-100); POTASSIUM SERUM 4.2 MEQ/L (3.5-5.1); SODIUM LEVEL 132 MEQ/L (136-145)
[2020-10-26] MEDS ORDERED: NS 1,000 ML IV SCH (09:00)
[2020-10-26] MEDS ORDERED: DOCUSATE SODIUM 100MG CAPSULE PO SCH (09:00)
--- NOTE | 2020-10-26 13:36 | IPNPDOC ---
Subjective Date Seen The patient was seen on 10/26/20. Subjective Chief Complaint/HPI Mrs. Gardner is a 25-year-old female with intellectual disability and ITP who presents to the ED for bleeding in the gums and epistaxis. Yesterday evening, she had her IVIG, steroid, and 1 platelet transfusion. This morning, she was seen with her grandmother. Grandmother reported that the bleeding is better. There is just residual scabs. Otherwise patient denies dyspnea or chest pain. Objective Physical Examination General Exam: Positive: Cooperative Eye Exam: Positive: Sclera icteric Neck Exam: Positive: Supple Chest Exam: Positive: Clear to auscultation; Negative: Rales, Rhonchi, Wheezing Heart Exam: Positive: Rate Normal, Regular Rhythm Abdomen Exam: Positive: Normal bowel sounds, Soft; Negative: Tenderness Extremity Exam: Negative: Edema Psych Exam: Negative: Mental status NL Assessment /Plan Assessment Mrs. Gardner is a 25-year-old female with intellectual disability and ITP who presents to the ED for bleeding in the gums and epistaxis. Plates were low at 1. Spoke with hematology/oncology. Recommended IVIG x2 days, dexamethasone x4 days, and platelet transfusion. Otherwise pending improvement in platelet count Plan/VTE VTE Prophylaxis Ordered?: No VTE Exclusion Mechanical Proph: Other (Severe thrombocytopenia, will wait for p latelets to improve before trying mechanical ppx) VTE Exclusion Pharmacological: Active Bleeding Plan 1. ITP with severe thrombocytopenia -Platelet on admission was 1 -Spoke with hematology/oncology, recommendations appreciated -Recommended IVIG x2 days, dexamethasone x4 days, and platelet transfusion if <10 -Platelet count today at 2 2. Intellectual disability -Grandmother cares for her 3. DVT ppx -No chemical ppx due to severe thrombocytopenia. Initially considered SCD and TEDs, but will wait until platelet level improve VS, I&O, 24H, Fishbone Vital Signs/I&O Vital Signs Date Time Temp Pulse Resp B/P (MAP) Pulse Ox O2 Delivery O2 Flow Rate FiO2 10/26/20 12:00 97.3 100 18 120/60 (80) 100 Room Air I&O- Last 24 Hours up to 6 AM 10/26/20 06:00 Intake Total 700 ml Output Total 0 ml Balance 700 ml Laboratory Data 24H LABS Laboratory Tests 2 10/26/20 05:40: Nucleated Red Blood Cells % (auto) 0.0, Anion Gap 4L, Glomerular Filtration Rate > 60.0, Calcium Level 9.1, Magnesium Level 2.0 CBC/BMP Laboratory Tests 10/26/20 05:40 MAXINE KING DO Oct 26, 2020 13:36
[2020-10-26] MEDS: MIRALAX *UNIT DOSE* 17GM PACKET PO SCH (16:39)
[2020-10-26] MEDS: IMMUNE GLOBULIN 10% 10 GM in IV 1 EA IV SCH (16:44)
--- NOTE | 2020-10-26 16:48 | CR.PDOC ---
General Date of Consultation: Oct 26, 2020 Consultation REASON FOR CONSULTATION/CHIEF COMPLAINT: 25 Year old lady with known ITP. HISTORY OF PRESENT ILLNESS: . Admitted with nose bleed and skin bruise ALLERGIES: Please see below. HOME MEDICATIONS: Please see below. PAST MEDICAL HISTORY: 1. .developmental delay 2. . ITP PAST SURGICAL HISTORY: 1. 2. FAMILY HISTORY: Grandmother has a problem with mitral valve disease grandmother has DVT history SOCIAL HISTORY: Marital status and/or living arrangements: Children: Employment: Tobacco use: ETOH: Illicit drug use: IV drug use: Other relevant social factors: REVIEW OF SYSTEMS:unable to give due to developmental delay CONSTITUTIONAL: . HEENT: . CARDIOVASCULAR: . RESPIRATORY: . GENITOURINARY: . MUSCULOSKELETAL: . GASTROINTESTINAL: . SKIN: . NEUROLOGICAL: . PSYCHIATRIC: . ENDOCRINE: . HEMATOLOGIC/LYMPHATIC: . ALLERGIC/IMMUNOLOGIC: . PHYSICAL EXAMINATION: VITAL SIGNS: Please see below. GENERAL APPEARANCE: [ awake and alert HEENT: .dry blood nose RESPIRATORY: .no wheeze no rales CARDIOVASCULAR: .regular ABDOMEN: . EXTREMITIES: . NEUROLOGICAL: . PSYCHIATRIC: . LABORATORY DATA: Please see below. ASSESSMENT/PLAN: 1. .ITP Plan: last month she was admitted to the hospital and she responded to IVGG one gram per Kg and Decadron 40-mg daily. continue the same therapy. Vital Signs/I&O Vital Signs Date Time Temp Pulse Resp B/P (MAP) Pulse Ox O2 Delivery O2 Flow Rate FiO2 10/26/20 12:00 97.3 100 18 120/60 (80) 100 Room Air I&O- Last 24 Hours up to 6 AM 10/26/20 05:59 Intake Total 700 ml Output Total 0 ml Balance 700 ml Laboratory Data Labs 24H Laboratory Tests 2 10/26/20 05:40: Nucleated Red Blood Cells % (auto) 0.0, Anion Gap 4L, Glomerular Filtration Rate > 60.0, Calcium Level 9.1, Magnesium Level 2.0 CBC/BMP Laboratory Tests 10/26/20 05:40 Allergies Coded Allergies: No Known Allergies (Unverified , 10/13/20) Home Medications No Active Prescriptions or Reported Meds ALBAN TOVAR MD Oct 26, 2020 16:48
[2020-10-26] MEDS: IMMUNE GLOBULIN 10% 40 GM in IV 1 EA IV SCH (18:55)
[2020-10-26] MEDS ORDERED: ACETAMINOPHEN 325 MG/10.15 ML UDC PO ONE (19:45)
[2020-10-27] VITALS: BP 133/69
[2020-10-27 04:00] VITALS: BP 126/61
[2020-10-27 05:53] LABS: HEMATOCRIT 30.3 % (36.0-47.0); HEMOGLOBIN 10.8 g/dl (12.0-15.5); MEAN CORPUSCULAR HEMOGLOBIN 31.4 pg (27.0-33.0); MEAN CORPUSCULAR HGB CONC 35.6 g/dl (32.0-36.5); MEAN CORPUSCULAR VOLUME 88.1 fl (80.0-96.0); RED BLOOD COUNT 3.44 10^6/uL (4.00-5.40)
[2020-10-27 05:56] LABS: PLATELET COUNT, AUTOMATED 24 10^3/uL (150-450); WHITE BLOOD COUNT 30.7 10^3/uL (4.0-10.0)
[2020-10-27 06:15] LABS: BLOOD UREA NITROGEN 15 MG/DL (7-18); CALCIUM LEVEL 8.4 MG/DL (8.5-10.1); CARBON DIOXIDE LEVEL 28 MEQ/L (21-32); CHLORIDE LEVEL 104 MEQ/L (98-107); CREATININE FOR GFR 0.92 MG/DL (0.55-1.30); GLOMERULAR FILTRATION RATE > 60.0 (>60); GLUCOSE, FASTING 265 MG/DL (70-100); POTASSIUM SERUM 3.8 MEQ/L (3.5-5.1); SODIUM LEVEL 135 MEQ/L (136-145)
[2020-10-27 08:00] VITALS: BP 138/66
[2020-10-27] MEDS: MIRALAX *UNIT DOSE* 17GM PACKET PO SCH (10:45)
[2020-10-27 12:00] VITALS: BP 109/55
[2020-10-27] MEDS: dexameTHASONE 20MG/5ML VIAL (J1100 PER 1MG) IV SCH (14:34)
[2020-10-27 16:00] VITALS: BP 127/66
[2020-10-27 20:00] VITALS: BP 143/78
--- NOTE | 2020-10-27 20:47 | IPNPDOC ---
Subjective Date Seen The patient was seen on 10/27/20. Subjective Chief Complaint/HPI Mrs. Gardner is a 25-year-old female with intellectual disability and ITP who presents to the ED for bleeding in the gums and epistaxis. Overnight bleeding has stopped. Platelet count increased from 2 to 24. Patient denies any chest pain or shortness of breath. Discuss case with hematology/oncology, Dr. Burnett. Recommended that we keep patient for last dexamethasone administration tomorrow. Plan to switch patient to prednisone 20 mg once a day until appointment with hematology/oncology. May need a sooner hematology/oncology appointment. Objective Physical Examination General Exam: Positive: Cooperative Eye Exam: Positive: Sclera icteric ENT Exam: Positive: Other ENT (no bleeding in oral cavity) Neck Exam: Positive: Supple Chest Exam: Positive: Clear to auscultation; Negative: Rales, Rhonchi, Wheezing Heart Exam: Positive: Rate Normal, Regular Rhythm Abdomen Exam: Positive: Normal bowel sounds, Soft; Negative: Tenderness Extremity Exam: Negative: Edema Psych Exam: Negative: Mental status NL Assessment /Plan Assessment Mrs. Gardner is a 25-year-old female with intellectual disability and ITP who presents to the ED for bleeding in the gums and epistaxis. Plates were low at 1. Spoke with hematology/oncology. Recommended IVIG x2 days, dexamethasone x4 days, and platelet transfusion. Will complete dexamethasone course tomorrow. Plan for prednisone 20 mg once a day on discharge until appointment with hematology/oncology. May need a sooner appointment. Plan/VTE VTE Prophylaxis Ordered?: No VTE Exclusion Mechanical Proph: Other (Severe thrombocytopenia, will wait for platelets to improve before trying mechanical ppx) VTE Exclusion Pharmacological: Active Bleeding Plan 1. ITP with severe thrombocytopenia -Platelet on admission was 1 -Spoke with hematology/oncology, recommendations appreciated -Recommended IVIG x2 days, dexamethasone x4 days, and platelet transfusion if <10 -Platelet count today at 24 2. Intellectual disability -Grandmother cares for her 3. DVT ppx -No chemical ppx due to severe thrombocytopenia. Also cautious with mechanical prophylaxis. We'll do TEDs VS, I&O, 24H, Fishbone Vital Signs/I&O Vital Signs Date Time Temp Pulse Resp B/P (MAP) Pulse Ox O2 Delivery O2 Flow Rate FiO2 10/27/20 16:00 98.9 111 15 127/66 (86) 100 Room Air I&O- Last 24 Hours up to 6 AM 10/27/20 06:00 Intake Total 1820 ml Output Total 0 ml Balance 1820 ml Laboratory Data 24H LABS Laboratory Tests 2 10/27/20 05:40: Nucleated Red Blood Cells % (auto) 0.0, Immature Platelet Fraction 21.8H, Anion Gap 3L, Glomerular Filtration Rate > 60.0, Calcium Level 8.4L CBC/BMP Laboratory Tests 10/27/20 05:40 MAXINE KING DO Oct 27, 2020 20:47
[2020-10-28 04:00] VITALS: BP 121/67
[2020-10-28 05:23] LABS: HEMATOCRIT 32.8 % (36.0-47.0); HEMOGLOBIN 10.3 g/dl (12.0-15.5); MEAN CORPUSCULAR HEMOGLOBIN 30.1 pg (27.0-33.0); MEAN CORPUSCULAR HGB CONC 31.4 g/dl (32.0-36.5); MEAN CORPUSCULAR VOLUME 95.9 fl (80.0-96.0); RED BLOOD COUNT 3.42 10^6/uL (4.00-5.40); WHITE BLOOD COUNT 22.2 10^3/uL (4.0-10.0)
[2020-10-28 05:27] LABS: PLATELET COUNT, AUTOMATED 42 10^3/uL (150-450)
[2020-10-28 05:49] LABS: BLOOD UREA NITROGEN 20 MG/DL (7-18); CALCIUM LEVEL 8.6 MG/DL (8.5-10.1); CARBON DIOXIDE LEVEL 25 MEQ/L (21-32); CHLORIDE LEVEL 105 MEQ/L (98-107); CREATININE FOR GFR 0.82 MG/DL (0.55-1.30); GLOMERULAR FILTRATION RATE > 60.0 (>60); GLUCOSE, FASTING 241 MG/DL (70-100); POTASSIUM SERUM 4.1 MEQ/L (3.5-5.1); SODIUM LEVEL 135 MEQ/L (136-145)
[2020-10-28] MEDS ORDERED: PRED20TA PO (07:53)
[2020-10-28 08:09] VITALS: BP 124/58
[2020-10-28] MEDS: MIRALAX *UNIT DOSE* 17GM PACKET PO SCH (09:00)
[2020-10-28] MEDS: dexameTHASONE 20MG/5ML VIAL (J1100 PER 1MG) IV SCH (11:04)
--- NOTE | 2020-10-28 23:36 | DS.PDOC ---
Discharge Summary General Date of Admission Oct 25, 2020 at 13:23 Date of Discharge Oct 28, 2020 Attending Physician: MAXINE KING DO Discharge Summary PROCEDURES PERFORMED DURING STAY: Platelet transfusion x2 (on 10/25/2020 and 10/26/2020) ADMITTING DIAGNOSES: 1. ITP with severe thrombocytopenia 2. Intellectual disability DISCHARGE DIAGNOSES: 1. ITP with severe thrombocytopenia 2. Intellectual disability COMPLICATIONS/CHIEF COMPLAINT: Thrombocytopenia. HISTORY OF PRESENT ILLNESS: Mrs. Gardner is a 25-year-old female with intellectual disability and ITP who presents to the ED for bleeding in the gums and epistaxis. Patient was recently hospitalized from October 14 to October 16 for thrombocytopenia of 2. Hematology/oncology, Dr. Duncan, saw the patient and recommended dexamethasone, IVIG, and platelet transfusion if platelets is below 10. Workup at that time did provide a mild splenomegaly. Patient was discharged on 10/16/2020. She did okay until this morning. She woke up to find blood on the pillowcase. She was bleeding from the gums and nose per grandmother. She was brought back to the ED. She is found to have a platelet count of 1. I spoke with the shipyard painting supervisor/oncologist nurse practitioner manager, Dr. Cheney. Recommended dexamethasone, IVIG, and platelet transfusion. He also said no chemical prophylaxis but mechanical was okay. When I saw the patient, she was grunting. Grandmother was present who provided most of the history. Bleeding appeared to have stopped and now dry. Patient to be admitted for ITP HOSPITAL COURSE: After the first day of steroids, IVIG, and platelets, her platelet count increased from 1 to 2. Her oral cavity was still bloodied. The second day of steroids and IVIG, her platelet count increased to 24 and she no longer had bleeding. I spoke with Heme/onc nurse practitioner manager, Dr. Cheney, who recommended one more day of IV steroids before transitioning to Prednisone 20mg qD. Today, she had a total of 2 doses of IVIG and 4 doses of dexamethasone. Her platelet count increased to 42. Today, she felt well. She was instructed to continue taking prednisone until she sees the shipyard painting supervisor/oncologist where they will determine to taper or continue at this dose. DISCHARGE MEDICATIONS: Please see below. ALLERGIES: Please see below. PHYSICAL EXAMINATION ON DISCHARGE: VITAL SIGNS: Please see below. GENERAL: Comfortable, in no apparent distress HEENT: No bleeding in oral cavity NECK: Supple CARDIOVASCULAR EXAMINATION: Regular rate and rhythm RESPIRATORY EXAMINATION: Lungs clear to auscultation bilaterally ABDOMINAL EXAMINATION: Soft, non-tender, normal bowel sounds EXTREMITIES: No pitting edema bilaterally SKIN: Warm and dry PSYCHIATRIC EXAMINATION: Intellectual disability LABORATORY DATA: Please see below. PROGNOSIS: Good ACTIVITY: As tolerated. DIET: As tolerated DISCHARGE PLAN: Home DISPOSITION: 01 Home, Self-Care. DISCHARGE INSTRUCTIONS: 1. Follow up with PCP within 1 week 2. Follow up with heme/onc as soon as possible 3. Continue steroids until you see your shipyard painting supervisor/oncologist DISCHARGE CONDITION: Stable Total time spent on discharge planning, discharge summary, and medication reconciliation: 50 minutes. Vital Signs/I&Os Vital Signs Date Time Temp Pulse Resp B/P (MAP) Pulse Ox O2 Delivery O2 Flow Rate FiO2 10/28/20 08:09 98.6 89 18 124/58 (80) 99 Room Air I&O- Last 24 Hours up to 6 AM 10/28/20 06:00 Intake Total 1196 ml Output Total 0 ml Balance 1196 ml Laboratory Data Labs 24H Laboratory Tests 2 10/28/20 05:00: Nucleated Red Blood Cells % (auto) 0.0, Anion Gap 5L, Glomerular Filtration Rate > 60.0, Calcium Level 8.6 CBC/BMP Laboratory Tests 10/28/20 05:00 Discharge Medications Scheduled Prednisone (Prednisone) 20 Mg Tablet, 20 MG PO DAILY Allergies Coded Allergies: No Known Allergies (Unverified , 10/13/20) MAXINE KING DO Oct 28, 2020 23:36
== END 2020-10-28 11:44 | disposition home or self-care (01) | DRG 661 ==
LOC: M ED 10:26 → M ED INP 13:23 → ENRESERV 13:59 → M PCU 16:31
PROVIDERS: ADMIT Internal Medicine; ATTEND Internal Medicine
DX: D69.3 Immune thrombocytopenic purpura (principal); F84.0 Autistic disorder; R04.0 Epistaxis

== ENCOUNTER 2020-11-02 15:28 | Inpatient (IN) | payer MEDICAID, OTHER ==
[~2020-11-02] VITALS: Ht 127 cm; Wt 46.6 kg
[~2020-11-02 15:28] MED LIST changes: +PRED20TA PO
[2020-11-02 18:40] LABS: BASO # 0.1 10^3/uL (0.0-0.2); BASO % 0.3 % (0.0-1.0); HEMOGLOBIN 12.1 g/dl (12.0-15.5); LYMPH # 2.7 10^3/uL (1.5-5.0); LYMPH % 16.1 % (24.0-44.0); MEAN CORPUSCULAR HGB CONC 33.6 g/dl (32.0-36.5); MEAN CORPUSCULAR VOLUME 89.1 fl (80.0-96.0); MONO # 0.9 10^3/uL (0.0-0.8); MONO % 5.2 % (0.0-5.0); NEUTROPHILS # 12.9 10^3/uL (1.5-8.5); NEUTROPHILS % 76.6 % (36.0-66.0); RED BLOOD COUNT 4.04 10^6/uL (4.00-5.40); WHITE BLOOD COUNT 16.9 10^3/uL (4.0-10.0)
[2020-11-02] MEDS ORDERED: PRED20TA PO (18:44)
[2020-11-02 18:50] LABS: PLATELET COUNT, AUTOMATED 1 10^3/uL (150-450)
[2020-11-02 18:57] LABS: INR 1.11; PROTHROMBIN TIME 14.5 SECONDS (12.5-14.3)
[2020-11-02 18:58] LABS: PARTIAL THROMBOPLASTIN TIME 27.4 SECONDS (24.2-38.5)
[2020-11-02 19:02] LABS: ALBUMIN 3.4 GM/DL (3.2-5.2); BILIRUBIN,DIRECT 0.2 MG/DL (0.0-0.2); BILIRUBIN,TOTAL 0.7 MG/DL (0.2-1.0); TOTAL PROTEIN 9.6 GM/DL (6.4-8.2)
[2020-11-02] MEDS ORDERED: ACETAMINOPHEN TAB 650MG DOSE (2X325MG) PO PRN (19:45)
[2020-11-02] MEDS ORDERED: MAALOX 30 ML SUSP *UDC PO PRN (19:45)
[2020-11-02] MEDS ORDERED: IMMUNE GLOBULIN 10% 0 GM in IV 1 EA IV SCH (19:45)
[2020-11-02] MEDS ORDERED: MOM 30ML SUSPENSION UDC PO PRN (19:45)
[2020-11-02] MEDS ORDERED: predniSONE 20 MG TAB PO ONE (20:00)
--- NOTE | 2020-11-02 20:06 | HPEPDOC ---
[facility] Medical History & Physical Date of Admission Nov 02, 2020 Date of Service: Nov 02, 2020 History and Physical CHIEF COMPLAINT: epistaxis HISTORY OF PRESENT ILLNESS: 25 yo F with a hx of ITP, intellectual disability, recently relocated from [place] with grandmother (caregiver), present to ED with recurrent epistaxis. She was discharged from [facility] on 10/28/20, during which admission she had same symptoms with PLT of 1. Patient received IVIG, dexamethasone and PLT transfusion and was discharged on PO prednisone with hematology follow up. Furthermore, she had been admitted again and discharged on 10/16/20 with the same complaints. Patient returns to ED with epistaxis and bruising on the L medial aspect of arm. Patient is non verbal due to severe autism and most of history is provided by grandmother. She does not have any acute complaints, and is otherwise at baseline in terms of mentation. Epistaxis started this morning and has resolved upon arrival to ED. Patient had been compliant with PO prednisone since discharge. PLT count on DC on 10/28/19 was 42. In ED, noted to have PLT count 1. Hgb stable > 12.Dr. Duncan was contacted from ED, recommended prednisone 50 mg daily, IVIG 1 mg/kg x 2, and PLT transfusion. Patient received prednisone in ER, PLT transfusion pending. Isolated WBC 16. NO fever, no cough, no increase in urinary frequency or urinary retention per grandmother. Patient will be admitted to hospitalist service to receive IVIG infusion. PAST MEDICAL HISTORY: Intellectual disability, autism per grandmother ITP PAST SURGICAL HISTORY: Tooth extraction SOCIAL HISTORY: non smoker non drinker no illicits FAMILY HISTORY: Mother: DVT, MVR, CAD, asthma, DM2, CVA ALLERGIES: Please see below. REVIEW OF SYSTEMS: 10 point ROS completed, as per HPI. HOME MEDICATIONS: Please see below. PHYSICAL EXAMINATION: VITAL SIGNS: please see below GENERAL APPEARANCE: comfortable in bed, good spirits, non verbal. grandmother at bedside. HEENT: PERRLA, small conjunctival hemorrhage R eye < 5 mm. Dried blood at L nares, no active bleeding CARDIOVASCULAR: RRR, normal S1, S2. LUNGS: CTAB. ABDOMEN: soft non tender, non distended. MUSCULOSKELETAL: no joint deformity. EXTREMITIES: no edema, no swelling NEUROLOGICAL: no focal neuro deficits. PSYCHIATRIC: severe intellectual disability, non verbal. LABORATORY DATA: See below. MICROBIOLOGY: Please see below. ASSESSMENT: 25 yo F with a hx of ITP and intellectual disability, admitted for thrombocytopenia (PLT 1). Hematology recommending prednisone, IVIG and PLT transfusion. . PLAN: #ITP with thrombocytopenia - PLT 1 - Hgb stable - Hematology Dr. Duncan recommended prednisone 50, IVIG 1 mg/kg x 2 days, PLT transfusion #L arm ecchymosis - no appreciated hematoma on exam - Hgb stable - monitor for increase in size, trend HH q8h. #Leukocytosis - WBC 16.9 - likely 2/2 steroid use for ITP since prior admission #DVT ppx: avoid chemoprophylaxis. SCDs. TEDs. Dispo: admission expected to last > 2 midnights. Vital Signs Vital Signs Date Time Temp Pulse Resp B/P (MAP) Pulse Ox O2 Delivery O2 Flow Rate FiO2 11/02/20 18:27 11/02/20 15:29 98.0 113 18 99 Room Air Laboratory Data Labs 24H Laboratory Tests 2 11/02/20 18:07: Immature Granulocyte % (Auto) 1.8, Neutrophils (%) (Auto) 76.6H, Lymphocytes (%) (Auto) 16.1L, Monocytes (%) (Auto) 5.2H, Eosinophils (%) (Auto) 0.0, Basophils (%) (Auto) 0.3, Neutrophils # (Auto) 12.9H, Lymphocytes # (Auto) 2.7, Monocytes # (Auto) 0.9H, Eosinophils # (Auto) 0.0, Basophils # (Auto) 0.1, Nucleated Red Blood Cells % (auto) 0.0, Immature Platelet Fraction 19.4H, Prothrombin Time 14.5H, Prothromb Time International Ratio 1.11, Activated Partial Thromboplast Time 27.4, Total Bilirubin 0.7, Direct Bilirubin 0.2, Aspartate Amino Transf (AST/SGOT) 19, Alanine Aminotransferase (ALT/SGPT) 31, Alkaline Phosphatase 77, Total Protein 9.6H, Albumin 3.4, Albumin/Globulin Ratio 0.5L, Coronavirus (COVID-19)(PCR) NEGATIVE 11/02/20 18:29: POC Glucose (Misc Panel) 128H, POC Sodium (Misc Panel) 137, POC Potassium (Misc Panel) 4.2, POC Chloride (Misc Panel) 98, POC Total CO2 (Misc Panel) 30.0H, POC Blood Urea Nitrogen (Misc Panel 19, POC Ionized Calcium (Misc Panel) 4.9, POC Creatinine (Misc Panel) 0.6, POC Hematocrit (Misc Panel) 36.0L CBC/BMP Laboratory Tests 11/02/20 18:07 Home Medications Scheduled Prednisone (Prednisone) 20 Mg Tablet, 20 MG PO DAILY started 10/29/19 x 12 days Allergies Coded Allergies: No Known Allergies (Unverified , 10/13/20) A-FIB/CHADSVASC A-FIB History Current/History of A-Fib/PAF?: No Current PO Anticoag Therapy: No RICKEY FOX MD Nov 02, 2020 20:06
--- NOTE | 2020-11-02 20:31 | REP ---
INDICATION: leukocytosis, ITP COMPARISON: None. TECHNIQUE: Portable AP view of the chest FINDINGS: The mediastinum and cardiac silhouette are within normal limits for portable technique. The lung cotter are clear without acute consolidation, effusion, or pneumothorax. Skeletal structures are intact. IMPRESSION: No acute cardiopulmonary process appreciated. <Electronically signed by Jeremy Mcmahon > 11/02/202027
[2020-11-02] MEDS ORDERED: DOCUSATE SODIUM 100MG CAPSULE PO SCH (21:00)
[2020-11-02] MEDS ORDERED: IMMUNE GLOBULIN 10% 10 GM in IV 1 EA IV ONE (23:00)
[2020-11-02] MEDS ORDERED: IMMUNE GLOBULIN 10% 40 GM in IV 1 EA IV ONE (23:00)
[2020-11-03] VITALS (27 sets, daily range): BP systolic 126–166; BP diastolic 62–99
[2020-11-03 02:22] LABS: HEMATOCRIT 28.2 % (36.0-47.0)
[2020-11-03 02:25] LABS: HEMOGLOBIN 9.7 g/dl (12.0-15.5)
[2020-11-03] MEDS ORDERED: predniSONE 50 MG TAB PO SCH (05:00)
[2020-11-03] MEDS ORDERED: predniSONE 20 MG TAB PO ONE (05:00)
[2020-11-03 06:34] LABS: BASO % 0.1 % (0.0-1.0); HEMATOCRIT 29.5 % (36.0-47.0); HEMOGLOBIN 10.3 g/dl (12.0-15.5); LYMPH # 3.9 10^3/uL (1.5-5.0); LYMPH % 20.6 % (24.0-44.0); MEAN CORPUSCULAR HEMOGLOBIN 31.1 pg (27.0-33.0); MEAN CORPUSCULAR HGB CONC 34.9 g/dl (32.0-36.5); MEAN CORPUSCULAR VOLUME 89.1 fl (80.0-96.0); MONO # 1.1 10^3/uL (0.0-0.8); MONO % 5.7 % (0.0-5.0); NEUTROPHILS # 13.5 10^3/uL (1.5-8.5); NEUTROPHILS % 72.2 % (36.0-66.0); RED BLOOD COUNT 3.31 10^6/uL (4.00-5.40); WHITE BLOOD COUNT 18.7 10^3/uL (4.0-10.0)
[2020-11-03 06:59] LABS: BLOOD UREA NITROGEN 14 MG/DL (7-18); CALCIUM LEVEL 8.6 MG/DL (8.5-10.1); CARBON DIOXIDE LEVEL 27 MEQ/L (21-32); CHLORIDE LEVEL 99 MEQ/L (98-107); CREATININE FOR GFR 0.67 MG/DL (0.55-1.30); GLOMERULAR FILTRATION RATE > 60.0 (>60); GLUCOSE, FASTING 136 MG/DL (70-100); POTASSIUM SERUM 3.9 MEQ/L (3.5-5.1); SODIUM LEVEL 133 MEQ/L (136-145)
[2020-11-03 07:22] LABS: PLATELET COUNT, AUTOMATED 3 10^3/uL (150-450)
[2020-11-03] MEDS ORDERED: IMMUNE GLOBULIN 10% 40 GM in IV 1 EA IV ONE ×2 (08:00→23:00)
[2020-11-03 10:02] LABS: HEMATOCRIT 31.7 % (36.0-47.0); HEMOGLOBIN 10.7 g/dl (12.0-15.5)
--- NOTE | 2020-11-03 11:54 | IPNPDOC ---
Text Note Date of Service The patient was seen on 11/03/20. NOTE Subjective: Patient seen and examined at bedside. Her grandmother is also at bedside with her. She voices no medical complaints, however, she is not a reliable historian. Objective: General: NAD, lying comfortably in bed,good spirits, non verbal. grandmother at bedside. HEENT: NC/AT, EOMI, PERRL, small conjunctival hemorrhage R eye < 5 mm, dried blood at base of left nares Lungs: CTA B/L Heart: +S1S2, RRR Abd: soft, possible tenderness, +BS Ext: mild edema LUE, large purpuric areas LUE A/P: 25 yo F with a hx of ITP and intellectual disability, admitted for thrombocytopenia (PLT 1). Hematology recommending prednisone, IVIG and PLT transfusion. Patient has had two admission for the same in the past 8 weeks. Previously treated in [place] and [place]. #ITP with thrombocytopenia - PLT 3 - Hgb stable - Hematology Dr. Duncan recommended prednisone 50, IVIG 1 mg/kg x 2 days, PLT transfusion - consultation pending - assistance appreciated - CT A/P pending - plan for bone marrow biopsy when platelets >10 #L arm ecchymosis - no appreciated hematoma on exam - Hgb stable - monitor for increase in size, trend HH q8h. - doppler/US pending #Leukocytosis - WBC 16.9 - likely 2/2 steroid use for ITP since prior admission #DVT ppx: avoid chemoprophylaxis. SCDs. TEDs. Dispo: admission expected to last > 2 midnights. VS,Fishbone, I+O VS, Fishbone, I+O Laboratory Tests 11/02/20 18:07 11/03/20 02:18 11/03/20 06:14 11/03/20 09:35 Vital Signs Date Time Temp Pulse Resp B/P (MAP) Pulse Ox O2 Delivery O2 Flow Rate FiO2 11/03/20 11:30 97.6 79 14 138/82 (100) Room Air 11/03/20 11:00 100 I&O- Last 24 Hours up to 6 AM 11/03/20 06:00 Intake Total 763 ml Output Total 0 ml Balance 763 ml VALENTE MARIA MD Nov 03, 2020 11:54
--- NOTE | 2020-11-03 12:49 | REP ---
INDICATION: abdominal pain, severe thrombocytopenia COMPARISON: None TECHNIQUE: Axial noncontrast images from the lung bases to the pubic symphysis with coronal and sagittal reformations. This CT examination was performed using the following dose reduction techniques: Automated exposure control, adjustment of mA and/or kv according to the patient's size, and use of iterative reconstruction technique. FINDINGS: Lung bases are clear. Visualized heart and pericardium normal. Liver, spleen, pancreas, gallbladder, and bilateral adrenal glands are normal. 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 No perinephric stranding or hydronephrosis. The enteric system demonstrates distended stomach with large amount of gastric contents along with moderate to significant fecal stasis through the colon and underlying constipation suggested. No evidence for small bowel obstruction. No free air. No free fluid. Pelvis demonstrates normal bladder and age-appropriate uterus/adnexa. No ascites. No free air. No adenopathy. No focal inflammatory stranding. Abdominal aorta without aneurysm. Musculoskeletal structures are intact and without acute osseous abnormality. IMPRESSION: 1. Distended stomach with significant amount of nonspecific gastric contents should be correlated with physical examination and history. 2. Moderate to significant fecal stasis should be correlated with possible history of constipation and abdominal pain. 3. 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 <Electronically signed by Jeremy Mcmahon > 11/03/20 [id number]
--- NOTE | 2020-11-03 13:35 | CR.PDOC ---
General Date of Consultation: Nov 03, 2020 Referring Provider: VALENTE MARIA MD Attending Physician: VALENTE MARIA MD Consultation REASON FOR CONSULTATION/CHIEF COMPLAINT: ITP HISTORY OF PRESENT ILLNESS: 25-year-old with recurring admissions for profound thrombocytopenia responsive to steroids and IVIG, but responses only of short duration. The patient is nonverbal with autism and cognitive dysfunction who is under the care of her paternal grandmother. She follows simple instructions from her grandmother who tells me that she is the legal guardian for patient. Abdominal ultrasound 10/14/2020 signed out as mild splenomegaly 9.1 x 7.7 x 8.9 cm. The patient is currently admitted with profound thrombocytopenia with epistaxis and ecchymoses on left upper arm from previous IV site insertion. Noted to have abdominal pain this morning. CT abdomen and pelvis 11/03/2020 showed distended stomach with significant amount of nonspecific gastric contents to be correlated with physical examinatio n and history and findings of moderate to significant fecal stasis. Her grandmother reports that she moved her bowels today. Hematology consulted for ITP. ALLERGIES: Please see below. HOME MEDICATIONS: Please see below. PAST MEDICAL HISTORY: Autism. Nonverbal. Cognitive dysfunction. According to grandmother, treated for thrombocytopenia in 2011 and in 2017 in [place]. PAST SURGICAL HISTORY: Dental extraction. FAMILY HISTORY: Paternal uncle has sickle cell. Family history on mother's side unknown. SOCIAL HISTORY: Lives with paternal grandmother and paternal uncle. Needs complete supervision of day-to-day activities. Paternal grandmother serves as caregiver. REVIEW OF SYSTEMS: History obtained from grandmother as patient is nonverbal. CONSTITUTIONAL: No fever. No night sweats. Good appetite. No chills. Noted to be more tired this past week. HEENT: Noted epistaxis recently. No headaches according to grandmother. CARDIOVASCULAR: No chest pains. RESPIRATORY: No cough. No shortness of breath. GENITOURINARY: No hematuria. The patient has not been noted to have menarche. MUSCULOSKELETAL: No joint or muscle achiness. GASTROINTESTINAL: No nausea nor vomiting. No constipation. No diarrhea. Noted to have abdominal pains. SKIN: Ecchymoses on left upper extremity. Petechiae on lower extremities. No skin rash. NEUROLOGICAL: No change in mental status. PSYCHIATRIC: No anxiety noted. HEMATOLOGIC/LYMPHATIC: Epistaxis noted. PHYSICAL EXAMINATION: VITAL SIGNS: Please see below. GENERAL APPEARANCE: Lying in bed, comfortable, followed simple instructions from grandmother. HEENT: Pinkish conjunctiva, anicteric sclerae. Atraumatic. Dried blood in both nares. RESPIRATORY: Lungs are clear. No rales, no rhonchi, no least. CARDIOVASCULAR: S1, S2, regular but slightly tachycardic. No murmur. No gallop. ABDOMEN: Soft, nontender, no guarding. Positive bowel sounds. No hepatosplenomegaly palpable. EXTREMITIES: No calf swelling, no calf tenderness, no pedal edema. Ecchymosis on left upper extremity. Petechiae on right thigh. NEUROLOGICAL: Alert, nonverbal. PSYCHIATRIC: Lying in bed, calm. Watching video on tablet. LABORATORY DATA: Please see below. 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 Continue prednisone 1 mg/kg daily. To complete IV immunoglobulin 1 g/kg today for a total of 2 days. Platelet transfusion for platelet count less than 10. Continue monitoring platelet counts daily and continue monitoring for signs of bleeding. The patient needs a bone marrow aspiration and biopsy for thrombocytopenia and anemia to rule out a concomitant hematological condition such as MDS, although this is rare for her age group. The patient's grandmother has agreed to sign consent for procedure. Please refer to interventional radiology for bone marrow aspiration and biopsy once platelet count is improved. Please check VICKI. Gastric protectant if not yet started. We'll consider additional treatment options such as rituximab, romiplostim, eltrombopag, fostamatinib or other immunosuppressants as an outpatient. Thank you for referring Ms. Pj Gardner. Vital Signs/I&O Vital Signs Date Time Temp Pulse Resp B/P (MAP) Pulse Ox O2 Delivery O2 Flow Rate FiO2 11/03/20 12:20 96.8 116 18 138/81 (100) 100 Room Air I&O- Last 24 Hours up to 6 AM 11/03/20 06:00 Intake Total 763 ml Output Total 0 ml Balance 763 ml Laboratory Data Labs 24H Laboratory Tests 2 11/02/20 18:07: Immature Granulocyte % (Auto) 1.8, Neutrophils (%) (Auto) 76.6H, Lymphocytes (%) (Auto) 16.1L, Monocytes (%) (Auto) 5.2H, Eosinophils (%) (Auto) 0.0, Basophils (%) (Auto) 0.3, Neutrophils # (Auto) 12.9H, Lymphocytes # (Auto) 2.7, Monocytes # (Auto) 0.9H, Eosinophils # (Auto) 0.0, Basophils # (Auto) 0.1, Nucleated Red Blood Cells % (auto) 0.0, Immature Platelet Fraction 19.4H, Prothrombin Time 14.5H, Prothromb Time International Ratio 1.11, Activated Partial Thromboplast Time 27.4, Total Bilirubin 0.7, Direct Bilirubin 0.2, Aspartate Amino Transf (AST/SGOT) 19, Alanine Aminotransferase (ALT/SGPT) 31, Alkaline Phosphatase 77, Total Protein 9.6H, Albumin 3.4, Albumin/Globulin Ratio 0.5L, Coronavirus (COVID-19)(PCR) NEGATIVE 11/02/20 18:29: POC Glucose (Misc Panel) 128H, POC Sodium (Misc Panel) 137, POC Potassium (Misc Panel) 4.2, POC Chloride (Misc Panel) 98, POC Total CO2 (Misc Panel) 30.0H, POC Blood Urea Nitrogen (Misc Panel 19, POC Ionized Calcium (Misc Panel) 4.9, POC Creatinine (Misc Panel) 0.6, POC Hematocrit (Misc Panel) 36.0L 11/03/20 06:14: Immature Granulocyte % (Auto) 1.4, Neutrophils (%) (Auto) 72.2H, Lymphocytes (%) (Auto) 20.6L, Monocytes (%) (Auto) 5.7H, Eosinophils (%) (Auto) 0.0, Basophils (%) (Auto) 0.1, Neutrophils # (Auto) 13.5H, Lymphocytes # (Auto) 3.9, Monocytes # (Auto) 1.1H, Eosinophils # (Auto) 0.0, Basophils # (Auto) 0.0, Nucleated Red Blood Cells % (auto) 0.1H, Anion Gap 7L, Glomerular Filtration Rate > 60.0, Calcium Level 8.6, Magnesium Level 2.0 CBC/BMP Laboratory Tests 11/02/20 18:07 11/03/20 02:18 11/03/20 06:14 11/03/20 09:35 Allergies Coded Allergies: No Known Allergies (Unverified , 10/13/20) Home Medications Scheduled Prednisone (Prednisone) 20 Mg Tablet, 20 MG PO DAILY, (Reported) started 10/29/19 x 12 days MACIEJ CHAVEZ MD Nov 03, 2020 13:35
[2020-11-03] MEDS: DOCUSATE SOD LIQ 100MG/10ML UDC PO PRN (16:47)
[2020-11-03] MEDS: PANTOPRAZOLE 40MG TAB (PROTONIX) PO SCH (16:49)
[2020-11-03 21:49] LABS: HEMATOCRIT 28.7 % (36.0-47.0); HEMOGLOBIN 9.9 g/dl (12.0-15.5); MEAN CORPUSCULAR HEMOGLOBIN 30.5 pg (27.0-33.0); MEAN CORPUSCULAR HGB CONC 34.5 g/dl (32.0-36.5); MEAN CORPUSCULAR VOLUME 88.3 fl (80.0-96.0); PLATELET COUNT, AUTOMATED 6 10^3/uL (150-450); RED BLOOD COUNT 3.25 10^6/uL (4.00-5.40); WHITE BLOOD COUNT 19.9 10^3/uL (4.0-10.0)
[2020-11-03] MEDS ORDERED: IMMUNE GLOBULIN 10% 10 GM in IV 1 EA IV ONE (23:00)
[2020-11-04] VITALS (24 sets, daily range): BP systolic 121–151; BP diastolic 68–97
[2020-11-04] MEDS ORDERED: IMMUNE GLOBULIN 10% 40 GM in IV 1 EA IV ONE (05:00)
[2020-11-04] MEDS ORDERED: IMMUNE GLOBULIN 10% 10 GM in IV 1 EA IV ONE (05:00)
[2020-11-04 07:09] LABS: BASO % 0.3 % (0.0-1.0); HEMATOCRIT 26.3 % (36.0-47.0); LYMPH # 4.9 10^3/uL (1.5-5.0); LYMPH % 32.8 % (24.0-44.0); MEAN CORPUSCULAR HEMOGLOBIN 30.5 pg (27.0-33.0); MEAN CORPUSCULAR HGB CONC 34.2 g/dl (32.0-36.5); MEAN CORPUSCULAR VOLUME 89.2 fl (80.0-96.0); MONO # 1.3 10^3/uL (0.0-0.8); MONO % 8.3 % (0.0-5.0); NEUTROPHILS # 8.5 10^3/uL (1.5-8.5); NEUTROPHILS % 56.9 % (36.0-66.0); RED BLOOD COUNT 2.95 10^6/uL (4.00-5.40)
[2020-11-04 07:13] LABS: PLATELET COUNT, AUTOMATED 13 10^3/uL (150-450)
[2020-11-04 07:40] LABS: BLOOD UREA NITROGEN 22 MG/DL (7-18); CALCIUM LEVEL 8.6 MG/DL (8.5-10.1); CARBON DIOXIDE LEVEL 32 MEQ/L (21-32); CHLORIDE LEVEL 100 MEQ/L (98-107); CREATININE FOR GFR 0.78 MG/DL (0.55-1.30); GLOMERULAR FILTRATION RATE > 60.0 (>60); GLUCOSE, FASTING 151 MG/DL (70-100); MAGNESIUM LEVEL 1.9 MG/DL (1.8-2.4); POTASSIUM SERUM 3.2 MEQ/L (3.5-5.1); SODIUM LEVEL 134 MEQ/L (136-145)
[2020-11-04] MEDS: PANTOPRAZOLE 40MG TAB (PROTONIX) PO SCH (09:00)
[2020-11-04 09:18] LABS: HEMATOCRIT 29.3 % (36.0-47.0); HEMOGLOBIN 9.8 g/dl (12.0-15.5)
[2020-11-04] MEDS: predniSONE 50 MG TAB PO SCH (09:51)
--- NOTE | 2020-11-04 13:13 | IPNPDOC ---
Text Note Date of Service The patient was seen on 11/04/20. NOTE Subjective: Patient seen and examined at bedside. Her grandmother is also at bedside with her. She does not indicate any medical complaints - she is non verbal. Objective: General: NAD, lying comfortably in bed,good spirits, non verbal. grandmother at bedside. HEENT: NC/AT, EOMI, PERRL, small conjunctival hemorrhage R eye < 5 mm, dried blood at base of left nares Lungs: CTA B/L Heart: +S1S2, RRR Abd: soft, NT, ND, +BS Ext: mild edema LUE, large purpuric areas LUE A/P: 25 yo F with a hx of ITP and intellectual disability, admitted for thrombocytopenia (PLT 1). Hematology recommending prednisone, IVIG and PLT transfusion. Patient has had two admission for the same in the past 8 weeks. Previously treated in [place] and [place]. #ITP with thrombocytopenia - PLT 13 today - Hgb stable - Hematology Dr. Duncan recommended prednisone 50, IVIG 1 mg/kg x 2 days, PLT transfusion - consultation appreciated - CT A/P no signs of hematoma - plan for bone marrow biopsy - to discuss with IR regarding PLT threshold #L arm ecchymosis - no appreciated hematoma on exam - Hgb stable - monitor for increase in size, trend HH q8h. - doppler/US unrevealing #Leukocytosis - WBC 16.9 - likely 2/2 steroid use for ITP since prior admission #DVT ppx: avoid chemoprophylaxis. SCDs. TEDs. Dispo: pending clinical improvement, bone marrow biopsy VS,Kisha, I+O VS, Kisha, I+O Laboratory Tests 11/03/20 21:42 11/04/20 06:58 11/04/20 09:04 Vital Signs Date Time Temp Pulse Resp B/P (MAP) Pulse Ox O2 Delivery O2 Flow Rate FiO2 11/04/20 11:35 98.4 112 18 121/75 (90) 100 Room Air I&O- Last 24 Hours up to 6 AM 11/04/20 06:00 Intake Total 1191 ml Output Total 200 ml Balance 991 ml VALENTE MARIA MD Nov 04, 2020 13:13
[2020-11-04] MEDS ORDERED: POTASSIUM CHLORIDE 10% LIQ 20 MEQ/15 ML UDC PO ONE (13:15)
--- NOTE | 2020-11-04 16:25 | REP ---
INDICATION: evaluate hematoma, thrombocytopenia COMPARISON: 10/16/2019 TECHNIQUE: Ultrasound examination using high-frequency transducer. FINDINGS: Directed ultrasound examination over the left humerus at the site of superficial bruising demonstrates no obvious underlying fluid collection or hematoma. IMPRESSION: No obvious underlying fluid collection or hematoma identified by ultrasound. <Electronically signed by Jeremy Mcmahon > 11/04/20 [id number]
[2020-11-04] MEDS: DOCUSATE SOD LIQ 100MG/10ML UDC PO PRN (23:31)
[2020-11-05 05:50] LABS: BASO % 0.2 % (0.0-1.0); HEMATOCRIT 27.8 % (36.0-47.0); HEMOGLOBIN 9.2 g/dl (12.0-15.5); LYMPH # 3.7 10^3/uL (1.5-5.0); LYMPH % 20.5 % (24.0-44.0); MEAN CORPUSCULAR HEMOGLOBIN 30.4 pg (27.0-33.0); MEAN CORPUSCULAR HGB CONC 33.1 g/dl (32.0-36.5); MEAN CORPUSCULAR VOLUME 91.7 fl (80.0-96.0); MONO # 1.9 10^3/uL (0.0-0.8); MONO % 10.1 % (0.0-5.0); NEUTROPHILS # 11.9 10^3/uL (1.5-8.5); NEUTROPHILS % 65.2 % (36.0-66.0); RED BLOOD COUNT 3.03 10^6/uL (4.00-5.40); WHITE BLOOD COUNT 18.3 10^3/uL (4.0-10.0)
[2020-11-05 05:53] LABS: PLATELET COUNT, AUTOMATED 17 10^3/uL (150-450)
[2020-11-05 06:00] VITALS: BP 143/92
[2020-11-05 06:12] LABS: BLOOD UREA NITROGEN 20 MG/DL (7-18); CALCIUM LEVEL 8.5 MG/DL (8.5-10.1); CARBON DIOXIDE LEVEL 30 MEQ/L (21-32); CHLORIDE LEVEL 102 MEQ/L (98-107); GLOMERULAR FILTRATION RATE > 60.0 (>60); GLUCOSE, FASTING 195 MG/DL (70-100); MAGNESIUM LEVEL 1.9 MG/DL (1.8-2.4); POTASSIUM SERUM 3.8 MEQ/L (3.5-5.1); SODIUM LEVEL 136 MEQ/L (136-145)
[2020-11-05] MEDS: PANTOPRAZOLE 40MG TAB (PROTONIX) PO SCH (09:00)
[2020-11-05] MEDS: predniSONE 50 MG TAB PO SCH (09:01)
[2020-11-05 14:00] VITALS: BP 150/102
[2020-11-05 14:10] LABS: ANTI DOUBLE STRAND-DNA AB 3 IU/mL (0-9); ANTINUCLEAR ANTIBODIES DIRECT Positive (Negative); RNP ANTIBODIES 2.4 AI (0.0-0.9); SJOGREN'S ANTI SS-A 3.4 AI (0.0-0.9); SJOGREN'S ANTI SS-B 0.2 AI (0.0-0.9); SMITH ANTIBODIES <0.2 AI (0.0-0.9)
--- NOTE | 2020-11-05 19:33 | ECGEPIP ---
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
--- NOTE | 2020-11-05 20:24 | IPNPDOC ---
Date Seen The patient was seen on 11/05/20. Progress Note SUBJECTIVE: Patient seen and examined at bedside. Her grandmother is also at bedside with her. Patient is nonverbal at baseline but displays no s/s of pain, discomfort on exam for me. Grandmother states patient vomited twice on 11/04 but nothing today. Eating well. OBJECTIVE: PHYSICAL EXAM: VS: Please see below General: NAD, lying comfortably in bed, non verbal- baseline. Grandmother at bedside, speaks to her in Swedish HEENT: NC/AT, EOMI, PERRL, small conjunctival hemorrhage R eye < 5 mm, dried blood at base of left nares Lungs: CTA B/L Heart: +S1S2, RRR Abd: soft, NT, ND, +BS INTEGUMENTARY: Large purpuric lesion on the left upper ext, not outlined with marker to indicate bigger/smaller. Ext: Mild edema LUE, no cyanosis or clubbing Neuro: No sensory or motor deficits, no focal deficits. LABORATORY: Please see below MICRO: none ASSESSMENT: 25 yo F with a hx of ITP and intellectual disability, admitted for thrombocytopenia (PLT 1). Hematology recommending prednisone, IVIG and PLT transfusion. Patient has had two admission for the same in the past 8 weeks. Previously treated in [place] and [place]. PLAN: #ITP/immune thrombocytopenia -S/p IVIG x 2 doses, 2 PLTs transfused this admission -PLTs improved today to 17 -H/H stable, purpuric lesion on LUE and multiple small purpuric rashes seen on body -Hematology following: recommend BM aspiration and bx for thrombocytopenia and anemia to r/o concomitant hematological condition such as MDS -IR consulted and may undergo bx on 11/06/20 -C/w prednisone daily -Appreciate Heme/onc input -F/u VICKI, labs daily #L arm ecchymosis/purpuric lesions, purpuric rashes on body likely 2/2 to ITP above -No pain, tenderness on exam. Not blanching -Doppler/US unrevealing -Not worsened, outlining with marker today -F/u treatment plan above #Sinus tachycardia -Possibly anxiety related vs. other cause -ECG: Sinus tachycardia -F/u echocardiogram -Starting on low dose metoprolol BID -Consider cardiology consult if persists #HTN -No prior dx -F/u echocardiogram -C/w BB BID #Leukocytosis likely 2/2 steroid use for ITP -WBC 18.3 -Daily CBC #DVT ppx -SCDs. TEDs. DISPOSITION: Bone marrow aspiration and bx likely 11/06/20. Heme/onc following. Plan is home when medically improved. VS, I&O, 24H, Fishbone Vital Signs/I&O Vital Signs Date Time Temp Pulse Resp B/P (MAP) Pulse Ox O2 Delivery O2 Flow Rate FiO2 11/05/20 14:00 97.3 113 19 150/102 (118) 100 Room Air I&O- Last 24 Hours up to 6 AM 11/05/20 06:00 Intake Total 1000 ml Output Total 850 ml Balance 150 ml Laboratory Data 24H LABS Laboratory Tests 2 11/05/20 05:40: Immature Granulocyte % (Auto) 4.0H, Neutrophils (%) (Auto) 65.2, Lymphocytes (%) (Auto) 20.5L, Monocytes (%) (Auto) 10.1H, Eosinophils (%) (Auto) 0.0, Basophils (%) (Auto) 0.2, Neutrophils # (Auto) 11.9H, Lymphocytes # (Auto) 3.7, Monocytes # (Auto) 1.9H, Eosinophils # (Auto) 0.0, Basophils # (Auto) 0.0, Nucleated Red Blood Cells % (auto) 0.6H, Immature Platelet Fraction 28.6H, Anion Gap 4L, Glomerular Filtration Rate > 60.0, Calcium Level 8.5, Magnesium Level 1.9 11/05/20 10:14: Lab Scanned Report Transfusion Record CBC/BMP Laboratory Tests 11/05/20 05:40 Current Medications Current Medications Medications (Trade) Dose Ordered Sig/Caryn Route PRN Reason Start Time Stop Time Status Last Admin Dose Admin Acetaminophen (Tylenol Tab) 650 mg Q4H PRN PO PAIN OR FEVER 11/02/20 19:45 Al Hydrox/Mg Hydrox/Simethicone (Mylanta) 30 ml DAILY PRN PO DYSPEPSIA 11/02/20 19:45 Docusate Sodium (Colace Liquid) 100 mg BIDP PRN PO constipation 11/03/20 15:15 11/03/20 16:47 Docusate Sodium (Colace) 100 mg BID PO 11/02/20 21:00 11/03/20 15:15 DC Home Med (Med Rec Complete!) ASDIRECTED XX 11/02/20 19:00 11/02/20 18:53 DC Immune Globulin / IV Miscellaneous Supplies 0 ml @ 0 mls/hr ASDIRECTED IV 11/02/20 19:45 11/02/20 22:23 DC Magnesium Hydroxide (Milk Of Magnesia) 30 ml DAILY PRN PO CONSTIPATION 11/02/20 19:45 Pantoprazole Sodium (Protonix) 40 mg DAILY PO 11/03/20 09:00 Prednisone (Deltasone) 50 mg DAILY PO 11/03/20 05:00 11/03/20 04:52 DC Prednisone (Deltasone) 50 mg DAILY PO 11/04/20 09:00 11/05/20 09:01 Allergies Coded Allergies: No Known Allergies (Unverified , 10/13/20) Dagmar Dhillon MD Nov 05, 2020 20:24
[2020-11-05] MEDS: DOCUSATE SOD LIQ 100MG/10ML UDC PO PRN (21:17)
[2020-11-05] MEDS: METOPROLOL TART 12.5 MG PER 1/2 TAB PO SCH (21:18)
[2020-11-05 22:00] VITALS: BP 148/98
[2020-11-06 06:00] VITALS: BP 136/91
[2020-11-06 06:25] LABS: HEMOGLOBIN 9.9 g/dl (12.0-15.5); MEAN CORPUSCULAR HEMOGLOBIN 30.5 pg (27.0-33.0); MEAN CORPUSCULAR VOLUME 92.3 fl (80.0-96.0); RED BLOOD COUNT 3.25 10^6/uL (4.00-5.40); WHITE BLOOD COUNT 21.8 10^3/uL (4.0-10.0)
[2020-11-06 06:26] LABS: PLATELET COUNT, AUTOMATED 27 10^3/uL (150-450)
[2020-11-06 07:04] LABS: BLOOD UREA NITROGEN 19 MG/DL (7-18); CALCIUM LEVEL 8.4 MG/DL (8.5-10.1); CARBON DIOXIDE LEVEL 29 MEQ/L (21-32); CHLORIDE LEVEL 99 MEQ/L (98-107); GLOMERULAR FILTRATION RATE > 60.0 (>60); GLUCOSE, FASTING 118 MG/DL (70-100); POTASSIUM SERUM 3.8 MEQ/L (3.5-5.1); SODIUM LEVEL 133 MEQ/L (136-145)
[2020-11-06 07:05] LABS: LYMPHOCYTES 26 % (16-44); MONOCYTES 6 % (0-5); NEUTROPHILS 68 % (28-66); PLATELET ESTIMATE MARKED DECREASE (NORMAL)
[2020-11-06] MEDS: METOPROLOL TART 12.5 MG PER 1/2 TAB PO SCH (08:04)
[2020-11-06] MEDS: predniSONE 50 MG TAB PO SCH (08:04)
[2020-11-06] MEDS: PANTOPRAZOLE 40MG TAB (PROTONIX) PO SCH (08:04)
[2020-11-06] MEDS ORDERED: LIDOCAINE 1% MDV 20ML VIAL As Ordered ONE (09:15)
[2020-11-06 11:00] VITALS: BP 138/90
[2020-11-06 11:30] VITALS: BP 137/91
[2020-11-06 12:00] VITALS: BP 138/90
[2020-11-06 14:00] VITALS: BP 137/79
--- NOTE | 2020-11-06 18:25 | IPNPDOC ---
Date Seen The patient was seen on 11/06/20. Progress Note SUBJECTIVE: PLTs improving to 27 on prednisone. S/p BM aspiration, biopsy. To touch base with Dr. Duncan to discuss plan for discharge. No increased rashes, bleeding. Patient in good spirits. OBJECTIVE: PHYSICAL EXAM: VS: Please see below General: NAD, lying comfortably in bed, non verbal- baseline. Grandmother at bedside, speaks to her in Malawian HEENT: NC/AT, EOMI, PERRL, small conjunctival hemorrhage R eye < 5 mm, dried blood at base of left nares Lungs: CTA B/L Heart: +S1S2, RRR Abd: soft, NT, ND, +BS INTEGUMENTARY: Large purpuric lesion on the left upper ext, not increased in size, nontender and nonblanching. Multiple small areas of petechial rashes on lower legs and arm- not new but not increase . Ext: Mild edema LUE, no cyanosis or clubbing Neuro: No sensory or motor deficits, no focal deficits. LABORATORY: Please see below IMAGING: Echocardiogram: F/u results MICRO: None ASSESSMENT: 25 yo F with a hx of ITP and intellectual disability, admitted for thrombocytopenia (PLT 1). Hematology recommending prednisone, IVIG and PLT transfusion. Patient has had two admission for the same in the past 8 weeks. Previously treated in [place] and [place]. PLAN: #ITP/immune thrombocytopenia -S/p BM biopsy today -PLTs improved today to 27 -This admission s/p IVIG x 2 doses, 2 PLTs -H/H stable, purpuric lesion on LUE and multiple small petechial rashes seen on body have not worsened -Hematology following: R/o concomitant hematological condition such as MDS with biopsy -Will TB with Dr. Duncan to discuss plan for discharge -C/w prednisone daily -F/u VICKI, labs daily #L arm ecchymosis/purpuric lesions, purpuric rashes on body likely 2/2 to ITP above -No pain, tenderness on exam. Not blanching -Doppler/US unrevealing -Not worsened -C/w treatment plan above #Sinus tachycardia -Improved some with low dose BB -Possibly anxiety related vs. other cause -ECG: Sinus tachycardia -F/u echocardiogram -Increasing metoprolol 25 mg PO BID -Consider cardiology consult if persists #HTN -Improving with BB -No prior dx -F/u echocardiogram -C/w BB BID #Leukocytosis likely 2/2 steroid use for ITP -WBC 21.8, afebrile -Daily CBC #DVT ppx -SCDs. TEDs. DISPOSITION: Heme/onc following, will TB to discuss plans for discharge goals. Plan is home when medically improved. VS, I&O, 24H, Fishbone Vital Signs/I&O Vital Signs Date Time Temp Pulse Resp B/P (MAP) Pulse Ox O2 Delivery O2 Flow Rate FiO2 11/06/20 14:00 98.9 111 17 137/79 (98) 100 Room Air I&O- Last 24 Hours up to 6 AM 11/06/20 06:00 Intake Total 1940 ml Output Total 725 ml Balance 1215 ml Laboratory Data 24H LABS Laboratory Tests 2 11/06/20 05:50: Neutrophils (%) (Auto) , Nucleated Red Blood Cells % (auto) 0.8H, Neutrophils 68H, Lymphocytes (Manual) 26, Monocytes (Manual) 6H, Red Blood Cell Morphology NORMAL, Platelet Estimate MARKED DECREASE, Immature Platelet Fraction 20.9H, Anion Gap 5L, Glomerular Filtration Rate > 60.0, Calcium Level 8.4L, Magnesium Level 2.0 CBC/BMP Laboratory Tests 11/06/20 05:50 Current Medications Current Medications Medications (Trade) Dose Ordered Sig/Caryn Route PRN Reason Start Time Stop Time Status Last Admin Dose Admin Acetaminophen (Tylenol Tab) 650 mg Q4H PRN PO PAIN OR FEVER 11/02/20 19:45 Al Hydrox/Mg Hydrox/Simethicone (Mylanta) 30 ml DAILY PRN PO DYSPEPSIA 11/02/20 19:45 Docusate Sodium (Colace Liquid) 100 mg BIDP PRN PO constipation 11/03/20 15:15 11/05/20 21:17 Docusate Sodium (Colace) 100 mg BID PO 11/02/20 21:00 11/03/20 15:15 DC Home Med (Med Rec Complete!) ASDIRECTED XX 11/02/20 19:00 11/02/20 18:53 DC Immune Globulin / IV Miscellaneous Supplies 0 ml @ 0 mls/hr ASDIRECTED IV 11/02/20 19:45 11/02/20 22:23 DC Magnesium Hydroxide (Milk Of Magnesia) 30 ml DAILY PRN PO CONSTIPATION 11/02/20 19:45 Metoprolol Tartrate (Lopressor) 12.5 mg BID PO 11/05/20 21:00 11/06/20 08:04 Pantoprazole Sodium (Protonix) 40 mg DAILY PO 11/03/20 09:00 Prednisone (Deltasone) 50 mg DAILY PO 11/03/20 05:00 11/03/20 04:52 DC Prednisone (Deltasone) 50 mg DAILY PO 11/04/20 09:00 11/06/20 08:04 Allergies Coded Allergies: No Known Allergies (Unverified , 10/13/20) Dagmar Dhillon MD Nov 06, 2020 18:25
--- NOTE | 2020-11-06 20:04 | REP ---
INDICATION: THROMBOCYTOPENIA. COMPARISON: None. TECHNIQUE: The procedure was performed under the direct supervision of Dr. Reid. The risks and benefits of the procedure were explained and informed consent was obtained by the healthcare proxy. The right iliac bone was localized using CT guidance. The skin was prepped and draped in a sterile fashion. 1% lidocaine was used as a local anesthetic. Using CT guidance an 11 gauge coaxial bone biopsy system was inserted and 3 cc of bone marrow was aspirated. One core was then obtained. The patient tolerated the procedure well and there were no immediate complications. FINDINGS: None IMPRESSION: CT-guided right iliac bone marrow biopsy. <Electronically signed by Richardson Bob > 11/06/20 1537 <Electronically signed by Gael Reid > 11/06/201999
[2020-11-06] MEDS ORDERED: METOPROLOL TART 25 MG TABLET PO SCH (21:00)
[2020-11-06 22:00] VITALS: BP 140/73
[2020-11-07 06:00] VITALS: BP 140/77
[2020-11-07 06:22] LABS: HEMATOCRIT 29.7 % (36.0-47.0); HEMOGLOBIN 9.8 g/dl (12.0-15.5); MEAN CORPUSCULAR HEMOGLOBIN 30.5 pg (27.0-33.0); MEAN CORPUSCULAR VOLUME 92.5 fl (80.0-96.0); RED BLOOD COUNT 3.21 10^6/uL (4.00-5.40); WHITE BLOOD COUNT 18.5 10^3/uL (4.0-10.0)
[2020-11-07 06:35] LABS: PLATELET COUNT, AUTOMATED 20 10^3/uL (150-450)
[2020-11-07 06:48] LABS: BLOOD UREA NITROGEN 20 MG/DL (7-18); CALCIUM LEVEL 8.3 MG/DL (8.5-10.1); CARBON DIOXIDE LEVEL 31 MEQ/L (21-32); CHLORIDE LEVEL 102 MEQ/L (98-107); CREATININE FOR GFR 0.91 MG/DL (0.55-1.30); GLOMERULAR FILTRATION RATE > 60.0 (>60); GLUCOSE, FASTING 181 MG/DL (70-100); POTASSIUM SERUM 3.5 MEQ/L (3.5-5.1); SODIUM LEVEL 135 MEQ/L (136-145)
[2020-11-07 07:06] LABS: ATYPICAL LYMPH 3 % (0-5); LYMPHOCYTES 42 % (16-44); MONOCYTES 3 % (0-5); NEUTROPHILS 52 % (28-66); PLATELET ESTIMATE MARKED DECREASE (NORMAL); POLYCHROMASIA 1+
[2020-11-07] MEDS: PANTOPRAZOLE 40MG TAB (PROTONIX) PO SCH (09:50)
[2020-11-07] MEDS: predniSONE 50 MG TAB PO SCH (09:50)
[2020-11-07] MEDS: METOPROLOL TART 50 MG TAB PO SCH ×3 (09:52→20:42)
[2020-11-07 10:14] LABS: NT-PRO BNP 51 PG/ML (<125); TROPONIN I < 0.02 NG/ML (< 0.10)
[2020-11-07 14:00] VITALS: BP 118/73
--- NOTE | 2020-11-07 16:59 | IPNPDOC ---
Date Seen The patient was seen on 11/07/20. Progress Note SUBJECTIVE: PLTS lower at 20 today, nose bled again but stopped spontaneously. No additional treatment currently per Dr. Duncan. Echo pending, discussed case with Dr. Espinal. Started on incr dose BB due to HR still elevated, BP creeping up. No increased rashes, bleeding. Patient in good spirits. OBJECTIVE: PHYSICAL EXAM: VS: Please see below General: NAD, lying comfortably in bed, non verbal- baseline. Grandmother at bedside, speaks to her in Irish HEENT: NC/AT, EOMI, PERRL, small conjunctival hemorrhage R eye < 5 mm, dried blood at base of left nares Lungs: CTA B/L Heart: +S1S2, RRR Abd: soft, NT, ND, +BS INTEGUMENTARY: Large purpuric lesion on the left upper ext, not increased in size, nontender and nonblanching. Multiple small areas of petechial rashes on lower legs and arm- not new but not increase . Ext: Mild edema LUE, no cyanosis or clubbing Neuro: No sensory or motor deficits, no focal deficits. LABORATORY: Please see below IMAGING: Echocardiogram: F/u results MICRO: None ASSESSMENT: 25 yo F with a hx of ITP and intellectual disability, admitted for thrombocytopenia (PLT 1). Hematology recommending prednisone, IVIG and PLT transfusion. Patient has had two admission for the same in the past 8 weeks. Previously treated in [place] and [place]. PLAN: #ITP/immune thrombocytopenia possibly 2/2 to autoimmune d/o -PLTs decreased to 20 today, small nose bleed. -S/p BM biopsy 11/06/20, results pending -This admission s/p IVIG x 2 doses, 2 PLTs -H/H stable, purpuric lesion on LUE and multiple small petechial rashes seen on body have not worsened -VICKI, SSA/Ro IgG and CAFETERIA SUPERVISOR IgG Ab elevated, discussed with Dr. Duncan. -Hematology following: R/o concomitant hematological condition such as MDS with biopsy -Per Dr. Duncan if PLTs remain above or at 20 without any additional bleeding can likely discharge home to f/u with o/p hematology. If condition worsens by 11/08/20 will discuss plan of care further with her at that point. -C/w prednisone daily -F/u CBC daily #Sinus tachycardia -HR and BP improved with increasing BB; however, still slightly tachycardic. -Discussed case with Dr. Espinal who would like to be called after echocardiogram market research executive is received. -ECG: Sinus tachycardia -F/u echocardiogram -C/w metoprolol 50 mg PO Q6H #HTN -Improving with BB -No prior dx -F/u echocardiogram -C/w BB BID #Epistaxis -Nose wound on base of left nostril present, bled twice in past two days -PLTs low but no other s/s of bleeding -H/H stable -Monitor closely, may require ENT consult. #L arm ecchymosis/purpuric lesions, purpuric rashes on body likely 2/2 to ITP above -No pain, tenderness on exam. Not blanching -Doppler/US unrevealing -Not worsened -C/w treatment plan above #Leukocytosis likely 2/2 steroid use for ITP -WBC improved some to 18K, afebrile -Daily CBC #DVT ppx -SCDs. TEDs. DISPOSITION: Heme/onc following, will TB to discuss plans in the AM. Also needs clearance by cadiology before home discharge discussed. VS, I&O, 24H, Fishbone Vital Signs/I&O Vital Signs Date Time Temp Pulse Resp B/P (MAP) Pulse Ox O2 Delivery O2 Flow Rate FiO2 11/07/20 15:27 105 119/74 11/07/20 14:00 97.3 18 99 Room Air I&O- Last 24 Hours up to 6 AM 11/07/20 06:00 Intake Total 870 ml Output Total 300 ml Balance 570 ml Laboratory Data 24H LABS Laboratory Tests 2 11/07/20 06:06: Neutrophils (%) (Auto) , Nucleated Red Blood Cells % (auto) 1.1H, Neutrophils 52, Lymphocytes (Manual) 42, Monocytes (Manual) 3, Atypical Lymphocytes 3, Polychromasia 1+, Platelet Estimate MARKED DECREASE, Immature Platelet Fraction 22.9H, Anion Gap 2L, Glomerular Filtration Rate > 60.0, Calcium Level 8.3L, Magnesium Level 2.0 11/07/20 09:28: Troponin I < 0.02, CI-Xqh-[id number]-Type Natriuretic Peptide 51 CBC/BMP Laboratory Tests 11/07/20 06:06 Current Medications Current Medications Medications (Trade) Dose Ordered Sig/Caryn Route PRN Reason Start Time Stop Time Status Last Admin Dose Admin Acetaminophen (Tylenol Tab) 650 mg Q4H PRN PO PAIN OR FEVER 11/02/20 19:45 Al Hydrox/Mg Hydrox/Simethicone (Mylanta) 30 ml DAILY PRN PO DYSPEPSIA 11/02/20 19:45 Docusate Sodium (Colace Liquid) 100 mg BIDP PRN PO constipation 11/03/20 15:15 11/05/20 21:17 Docusate Sodium (Colace) 100 mg BID PO 11/02/20 21:00 11/03/20 15:15 DC Home Med (Med Rec Complete!) ASDIRECTED XX 11/02/20 19:00 11/02/20 18:53 DC Immune Globulin / IV Miscellaneous Supplies 0 ml @ 0 mls/hr ASDIRECTED IV 11/02/20 19:45 11/02/20 22:23 DC Magnesium Hydroxide (Milk Of Magnesia) 30 ml DAILY PRN PO CONSTIPATION 11/02/20 19:45 Metoprolol Tartrate (Lopressor) 12.5 mg BID PO 11/05/20 21:00 11/06/20 18:22 DC 11/06/20 08:04 Metoprolol Tartrate (Lopressor) 25 mg BID PO 11/06/20 21:00 11/07/20 09:14 DC 11/06/20 20:22 Metoprolol Tartrate (Lopressor) 50 mg Q6H PO 11/07/20 09:00 11/07/20 15:27 Pantoprazole Sodium (Protonix) 40 mg DAILY PO 11/03/20 09:00 Prednisone (Deltasone) 50 mg DAILY PO 11/03/20 05:00 11/03/20 04:52 DC Prednisone (Deltasone) 50 mg DAILY PO 11/04/20 09:00 11/06/20 08:04 Allergies Coded Allergies: No Known Allergies (Unverified , 10/13/20) Dagmar Dhillon MD Nov 07, 2020 16:59
--- NOTE | 2020-11-07 19:12 | ECGEPIP ---
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
[2020-11-07] MEDS: DOCUSATE SOD LIQ 100MG/10ML UDC PO PRN (20:42)
[2020-11-07 22:00] VITALS: BP 115/63
[2020-11-08] MEDS: METOPROLOL TART 50 MG TAB PO SCH ×4 (03:18→20:34)
[2020-11-08 06:00] VITALS: BP 120/64
[2020-11-08 07:25] LABS: HEMATOCRIT 28.8 % (36.0-47.0); HEMOGLOBIN 9.3 g/dl (12.0-15.5); MEAN CORPUSCULAR HEMOGLOBIN 30.5 pg (27.0-33.0); MEAN CORPUSCULAR HGB CONC 32.3 g/dl (32.0-36.5); MEAN CORPUSCULAR VOLUME 94.4 fl (80.0-96.0); RED BLOOD COUNT 3.05 10^6/uL (4.00-5.40); WHITE BLOOD COUNT 21.2 10^3/uL (4.0-10.0)
[2020-11-08 07:29] LABS: PLATELET COUNT, AUTOMATED 5 10^3/uL (150-450)
[2020-11-08 07:45] LABS: BLOOD UREA NITROGEN 18 MG/DL (7-18); CALCIUM LEVEL 8.2 MG/DL (8.5-10.1); CARBON DIOXIDE LEVEL 29 MEQ/L (21-32); CHLORIDE LEVEL 104 MEQ/L (98-107); CREATININE FOR GFR 0.87 MG/DL (0.55-1.30); GLOMERULAR FILTRATION RATE > 60.0 (>60); GLUCOSE, FASTING 300 MG/DL (70-100); MAGNESIUM LEVEL 1.9 MG/DL (1.8-2.4); POTASSIUM SERUM 3.6 MEQ/L (3.5-5.1); SODIUM LEVEL 138 MEQ/L (136-145)
[2020-11-08] MEDS ORDERED: GLUCAGON INJ 1MG VIAL SC PRN (08:00)
[2020-11-08] MEDS ORDERED: DEXTROSE 50% 50 ML SYRINGE IV PRN (08:00)
[2020-11-08] MEDS ORDERED: GLUCOSE 4GM CHEW TABLET PO PRN (08:00)
[2020-11-08 08:28] LABS: ANISOCYTOSIS 1+; LYMPHOCYTES 26 % (16-44); MONOCYTES 7 % (0-5); NEUTROPHILS 67 % (28-66); PLATELET ESTIMATE MARKED DECREASE (NORMAL); POLYCHROMASIA 1+
[2020-11-08] MEDS: PANTOPRAZOLE 40MG TAB (PROTONIX) PO SCH (08:47)
[2020-11-08] MEDS: dexameTHASONE 20MG/5ML VIAL (J1100 PER 1MG) IV SCH (09:46)
[2020-11-08] MEDS: HumaLOG INSULIN (NovoLOG) PER UNIT SC SCH ×3 (12:37→17:16)
[2020-11-08] MEDS ORDERED: LIDOCAINE 1% MDV 20ML VIAL As Ordered ONE (12:37)
[2020-11-08 14:00] VITALS: BP 125/78
[2020-11-08 14:19] VITALS: BP 125/79
[2020-11-08 15:39] VITALS: BP 125/78
[2020-11-08] MEDS: SODIUM CHLORIDE 0.9% INJ 10 ML SYR IV SCH (15:52)
--- NOTE | 2020-11-08 17:51 | REP ---
PROCEDURE NAME: PICC LINE INSERTION W/SITERITE CLINICAL INFORMATION: poor access. COMPARISON: None. PROCEDURE DESCRIPTION: The procedure was performed by SHRUTI Valdez, under the direct supervision of Dr. Reid. The risks and benefits of the procedure were explained to the patient and an informed consent was obtained both verbally and written. Directly prior to the start of the procedure a formal time-out was completed in the procedure room. The right basilic vein was localized using ultrasound guidance. The skin was prepped and draped in sterile fashion. One mL of 1% lidocaine 10 mg/mL was used as a local anesthetic. Using ultrasound guidance the right basilic vein was cannulated, and a 0.018 guidewire was inserted and advanced to the level of SVC using fluoroscopic guidance. The needle was removed and a 5.5 Anguillan dilator and peel-away sheath was inserted over the guidewire. A 5.5 Anguillan dual lumen catheter was cut to a length of 35 cm. The dilator was removed and the catheter was inserted over the guidewire with the tip ending at the level of the SVC. The peel-away sheath was removed and the catheter was flushed with heparinized saline as per hospital protocol. The catheter was affixed to the skin and a sterile dressing was applied. The patient tolerated the procedure well and there were no immediate complications. CONCLUSION: PICC line insertion into the right basilic vein. 0.2 minutes of fluoroscopy time was utilized for this procedure. Some fluoroscopic images are performed with last image hold technology. These images require no additional radiation. <Electronically signed by Elli Ríos > 11/08/20 1510 <Electronically signed by Gael Reid > 11/08/20 [id number]
--- NOTE | 2020-11-08 18:42 | IPNPDOC ---
Date Seen The patient was seen on 11/08/20. Progress Note SUBJECTIVE: PLTs 9, ordered 1 PLTs which were given this afternoon after PICC placed. No additional epistaxis episodes. Dexamethasone started at 40 mg IV daily. Echocardiogram: EF 55-65%, mild aortic and mitral regurgitation. No increased rashes, bleeding. Patient in good spirits. OBJECTIVE: PHYSICAL EXAM: VS: Please see below General: NAD, lying comfortably in bed, non verbal- baseline. Grandmother at bedside, speaks to her in English HEENT: NC/AT, EOMI, PERRL, small conjunctival hemorrhage R eye < 5 mm, dried blood at base of left nares Lungs: CTA B/L Heart: +S1S2, RRR Abd: soft, NT, ND, +BS INTEGUMENTARY: Large purpuric lesion on the left upper ext, not increased in size, nontender and nonblanching. Multiple small areas of petechial rashes on lower legs and arm- not new but not increase. Ext: Mild edema LUE, no cyanosis or clubbing Neuro: No sensory or motor deficits, no focal deficits. LABORATORY: Please see below IMAGING: Echocardiogram: EF 55-65%, mild aortic and mitral regurgitation- called to me by Dr. Crowell Official transcribed report pending MICRO: None ASSESSMENT: 25 yo F with a hx of ITP and intellectual disability, admitted for thrombocytopenia (PLT 1). Hematology recommending prednisone, IVIG and PLT transfusion. Patient has had two admission for the same in the past 8 weeks. Previously treated in [place] and [place]. 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 Duncan. -Hematology following: R/o concomitant hematological condition such as MDS with biopsy -Per Dr. Duncan, transfuse if PLTs <10. -D/alexandr prednisone today, started on IV dexamethasone 40 mg daily x 4 days. After 4 days, restart prednisone 50 mg PO daily -F/u CBC daily #Sinus tachycardia -HR and BP improved with increasing BB; however, still slightly tachycardic. -Echo above -ECG: Sinus tachycardia -Echo above -C/w metoprolol 50 mg PO Q6H per cards #HTN -Improved with BB -No prior dx -C/w BB #Epistaxis -Nose wound on base of left nostril present, bled twice in past two days -PLTs low but no other s/s of bleeding -H/H stable -Monitor closely #L arm ecchymosis/purpuric lesions, purpuric rashes on body likely 2/2 to ITP above -No pain, tenderness on exam. Not blanching -Doppler/US unrevealing -Not worsened -C/w treatment plan above #Leukocytosis likely 2/2 steroid use for ITP -WBC 21, afebrile -Daily CBC #DVT ppx -SCDs. TEDs. DISPOSITION: Heme/onc following, c/w high dose steroids for now. Plan is d/c home when medically improved. VS, I&O, 24H, Fishbone Vital Signs/I&O Vital Signs Date Time Temp Pulse Resp B/P (MAP) Pulse Ox O2 Delivery O2 Flow Rate FiO2 11/08/20 15:51 116 125/65 11/08/20 15:39 97.6 18 100 Room Air I&O- Last 24 Hours up to 6 AM 11/08/20 06:00 Intake Total 1320 ml Output Total 1400 ml Balance -80 ml Laboratory Data 24H LABS Laboratory Tests 2 11/08/20 06:59: Neutrophils (%) (Auto) , Nucleated Red Blood Cells % (auto) 1.4H, Neutrophils 67H, Lymphocytes (Manual) 26, Monocytes (Manual) 7H, Polychromasia 1+, Basophilic Stippling 1+, Anisocytosis 1+, Macrocytosis 1+, Platelet Estimate MARKED DECREASE, Immature Platelet Fraction 31.7H, Anion Gap 5L, Glomerular Filtration Rate > 60.0, Calcium Level 8.2L, Magnesium Level 1.9 11/08/20 12:23: Bedside Glucose (Misc Panel) 278H 11/08/20 16:39: Bedside Glucose (Misc Panel) 334H CBC/BMP Laboratory Tests 11/08/20 06:59 Current Medications Current Medications Medications (Trade) Dose Ordered Sig/Caryn Route PRN Reason Start Time Stop Time Status Last Admin Dose Admin Acetaminophen (Tylenol Tab) 650 mg Q4H PRN PO PAIN OR FEVER 11/02/20 19:45 Al Hydrox/Mg Hydrox/Simethicone (Mylanta) 30 ml DAILY PRN PO DYSPEPSIA 11/02/20 19:45 Dexamethasone (Decadron) 40 mg DAILY IV 11/08/20 09:00 11/11/20 12:00 11/08/20 09:46 Dextrose (Dextrose 50%) 25 ml ASDIRECTED PRN IV SEE LABEL COMMENTS 11/08/20 08:00 Docusate Sodium (Colace Liquid) 100 mg BIDP PRN PO constipation 11/03/20 15:15 11/07/20 20:42 Docusate Sodium (Colace) 100 mg BID PO 11/02/20 21:00 11/03/20 15:15 DC Glucagon (Glucagon) 1 mg ASDIRECTED PRN SC SEE LABEL COMMENTS 11/08/20 08:00 Glucose (Glucose) 16 GM ASDIRECTED PRN PO SEE LABEL COMMENTS 11/08/20 08:00 Heparin Sodium (Heparin (Flush)) 200 units ASDIRECTED PRN IV SEE LABEL COMMENTS 11/08/20 14:15 Heparin Sodium (Heparin (Flush)) 200 units PICC IV 11/08/20 18:00 11/08/20 15:51 Home Med (Med Rec Complete!) ASDIRECTED XX 11/02/20 19:00 11/02/20 18:53 DC Immune Globulin / IV Miscellaneous Supplies 0 ml @ 0 mls/hr ASDIRECTED IV 11/02/20 19:45 11/02/20 22:23 DC Insulin Human Lispro (HumaLOG INSULIN) SEE PROTOCOL TABLE AC SC 11/08/20 12:00 11/08/20 17:16 Magnesium Hydroxide (Milk Of Magnesia) 30 ml DAILY PRN PO CONSTIPATION 11/02/20 19:45 Metoprolol Tartrate (Lopressor) 12.5 mg BID PO 11/05/20 21:00 11/06/20 18:22 DC 11/06/20 08:04 Metoprolol Tartrate (Lopressor) 25 mg BID PO 11/06/20 21:00 11/07/20 09:14 DC 11/06/20 20:22 Metoprolol Tartrate (Lopressor) 50 mg Q6H PO 11/07/20 09:00 11/08/20 15:51 Pantoprazole Sodium (Protonix) 40 mg DAILY PO 11/03/20 09:00 11/08/20 08:47 Prednisone (Deltasone) 50 mg DAILY PO 11/03/20 05:00 11/03/20 04:52 DC Prednisone (Deltasone) 50 mg DAILY PO 11/04/20 09:00 11/08/20 07:53 DC 11/06/20 08:04 Sodium Chloride (Saline Lock Flush) 10 ml ASDIRECTED PRN IV SEE LABEL COMMENTS 11/08/20 14:15 Sodium Chloride (Saline Lock Flush) 10 ml PICC IV 11/08/20 18:00 11/08/20 15:52 Allergies Coded Allergies: No Known Allergies (Unverified , 10/13/20) Dagmar Dhillon MD Nov 08, 2020 18:42
[2020-11-08 18:59] LABS: HEMATOCRIT 29.6 % (36.0-47.0); HEMOGLOBIN 9.8 g/dl (12.0-15.5); MEAN CORPUSCULAR HEMOGLOBIN 30.7 pg (27.0-33.0); MEAN CORPUSCULAR HGB CONC 33.1 g/dl (32.0-36.5); MEAN CORPUSCULAR VOLUME 92.8 fl (80.0-96.0); RED BLOOD COUNT 3.19 10^6/uL (4.00-5.40); WHITE BLOOD COUNT 29.5 10^3/uL (4.0-10.0)
[2020-11-08 19:03] LABS: PLATELET COUNT, AUTOMATED 16 10^3/uL (150-450)
[2020-11-08 22:00] VITALS: BP 140/91
[2020-11-09] MEDS: METOPROLOL TART 50 MG TAB PO SCH ×4 (03:03→20:51)
[2020-11-09 06:00] VITALS: BP 122/75
[2020-11-09] MEDS: SODIUM CHLORIDE 0.9% INJ 10 ML SYR IV SCH ×2 (06:15→16:51)
[2020-11-09] MEDS: SODIUM CHLORIDE 0.9% INJ 10 ML SYR IV PRN (06:17)
[2020-11-09 07:15] LABS: BASO # 0.1 10^3/uL (0.0-0.2); BASO % 0.3 % (0.0-1.0); HEMOGLOBIN 9.8 g/dl (12.0-15.5); LYMPH # 3.1 10^3/uL (1.5-5.0); LYMPH % 10.5 % (24.0-44.0); MEAN CORPUSCULAR HEMOGLOBIN 30.4 pg (27.0-33.0); MEAN CORPUSCULAR HGB CONC 32.7 g/dl (32.0-36.5); MEAN CORPUSCULAR VOLUME 93.2 fl (80.0-96.0); MONO # 1.7 10^3/uL (0.0-0.8); MONO % 5.9 % (0.0-5.0); NEUTROPHILS # 23.8 10^3/uL (1.5-8.5); NEUTROPHILS % 80.9 % (36.0-66.0); RED BLOOD COUNT 3.22 10^6/uL (4.00-5.40); WHITE BLOOD COUNT 29.3 10^3/uL (4.0-10.0)
[2020-11-09 07:28] LABS: PLATELET COUNT, AUTOMATED 21 10^3/uL (150-450)
[2020-11-09 07:37] LABS: BLOOD UREA NITROGEN 22 MG/DL (7-18); CALCIUM LEVEL 8.5 MG/DL (8.5-10.1); CARBON DIOXIDE LEVEL 28 MEQ/L (21-32); CHLORIDE LEVEL 100 MEQ/L (98-107); CREATININE FOR GFR 0.82 MG/DL (0.55-1.30); GLOMERULAR FILTRATION RATE > 60.0 (>60); GLUCOSE, FASTING 265 MG/DL (70-100); MAGNESIUM LEVEL 1.9 MG/DL (1.8-2.4); SODIUM LEVEL 135 MEQ/L (136-145)
[2020-11-09] MEDS: PANTOPRAZOLE 40MG TAB (PROTONIX) PO SCH (08:23)
[2020-11-09] MEDS: HumaLOG INSULIN (NovoLOG) PER UNIT SC SCH ×3 (08:23→16:51)
[2020-11-09] MEDS: dexameTHASONE 20MG/5ML VIAL (J1100 PER 1MG) IV SCH (09:07)
[2020-11-09] MEDS ORDERED: LEVEMIR (INSULIN DETEMIR) 1 UNITS/0.01ML SC ONE (10:00)
[2020-11-09 10:50] LABS: CHOLESTEROL LEVEL 149 MG/DL (<200); CHOLESTEROL RISK RATIO 1.935 (<5); HDL CHOLESTEROL 77 MG/DL (>40); LDL CHOLESTEROL 63 MG/DL (<100); NON-HDL-C 72 MG/DL; TRIGLYCERIDES LEVEL 46 MG/DL (<150)
[2020-11-09 11:25] LABS: HEMOGLOBIN A1c 5.5 %
[2020-11-09 14:00] VITALS: BP 129/87
--- NOTE | 2020-11-09 19:26 | IPNPDOC ---
Date Seen The patient was seen on 11/09/20. Progress Note SUBJECTIVE: PLTs improved to 21, s/p 1 PLT 11/08/20. No additional epistaxis episodes. BS elevated in 300's, diabetes w/u neg and likely all steroid driven. No increased rashes, bleeding. Patient in good spirits. OBJECTIVE: PHYSICAL EXAM: VS: Please see below General: NAD, lying comfortably in bed, non verbal- baseline. Grandmother at bedside, speaks to her in English HEENT: NC/AT, EOMI, PERRL, small conjunctival hemorrhage R eye < 5 mm, dried blood at base of left nares Lungs: CTA B/L Heart: +S1S2, RRR Abd: soft, NT, ND, +BS INTEGUMENTARY: Large purpuric lesion on the left upper ext, decreasing increased in size, nontender and nonblanching. Multiple small areas of petechial rashes on lower legs and arm- not new but not increase. Ext: Mild edema LUE, no cyanosis or clubbing Neuro: No sensory or motor deficits, no focal deficits. LABORATORY: Please see below IMAGING: Echocardiogram: EF 55-65%, mild aortic and mitral regurgitation- called to me by Dr. Crowell Official transcribed report pending MICRO: None ASSESSMENT: 25 yo F with a hx of ITP and intellectual disability, admitted for thrombocytopenia (PLT 1). Hematology recommending prednisone, IVIG and PLT tr ansfusion. Patient has had two admission for the same in the past 8 weeks. Previously treated in [place] and [place]. 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 Duncan. -Hematology following: R/o concomitant hematological condition such as MDS with biopsy -Per Dr. Duncan, transfuse if PLTs <10. -C/w IV dexamethasone 40 mg daily x 3 additional days. After 4 days, restart prednisone 50 mg PO daily -F/u CBC daily #Sinus tachycardia -HR and BP improved with increasing BB; however, still slightly tachycardic. -Echo above -ECG: Sinus tachycardia -Echo above -Discussed case with Dr. Zambrano, watch for now -C/w metoprolol 50 mg PO Q6H per cards #Hyperglycemia likely steroid inducted -BS 300's -HbA1c 5.5, lipid panel unremarkable -Started on levemir AM, ISS with FS AC/HS, consistent carb diet #HTN -Improved with BB -No prior dx -C/w BB #Epistaxis -Nose wound on base of left nostril present -PLTs 20 but no other s/s of bleeding -H/H stable -Monitor closely #L arm ecchymosis/purpuric lesions, purpuric rashes on body likely 2/2 to ITP above -No pain, tenderness on exam. Not blanching -Doppler/US unrevealing -Not worsened -C/w treatment plan above #Leukocytosis likely 2/2 steroid use for ITP -WBC 29.3, afebrile -Daily CBC #DVT ppx -SCDs. TEDs. DISPOSITION: Heme/onc following. Plan is d/c home when medically improved. VS, I&O, 24H, Fishbone Vital Signs/I&O Vital Signs Date Time Temp Pulse Resp B/P (MAP) Pulse Ox O2 Delivery O2 Flow Rate FiO2 11/09/20 14:24 105 129/87 11/09/20 14:00 97.9 16 98 Room Air I&O- Last 24 Hours up to 6 AM 11/09/20 06:00 Intake Total 1420 ml Output Total 2100 ml Balance -680 ml Laboratory Data 24H LABS Laboratory Tests 2 11/08/20 20:20: Bedside Glucose (Misc Panel) 296H 11/09/20 05:54: Bedside Glucose (Misc Panel) 276H 11/09/20 06:30: Immature Granulocyte % (Auto) 2.4, Neutrophils (%) (Auto) 80.9H, Lymphocytes (%) (Auto) 10.5L, Monocytes (%) (Auto) 5.9H, Eosinophils (%) (Auto) 0.0, Basophils (%) (Auto) 0.3, Neutrophils # (Auto) 23.8H, Lymphocytes # (Auto) 3.1, Monocytes # (Auto) 1.7H, Eosinophils # (Auto) 0.0, Basophils # (Auto) 0.1, Nucleated Red Blood Cells % (auto) 0.6H, Anion Gap 7L, Glomerular Filtration Rate > 60.0, Estimated Mean Plasma Glucose 111H, Hemoglobin A1c 5.5, Calcium Level 8.5, Magnesium Level 1.9, Triglycerides Level 46, Total Cholesterol 149, LDL Cholesterol 63, Non-HDL Cholesterol (LDL + VLDL) 72, Total HDL Cholesterol 77, Cholesterol/HDL Ratio 1.935 11/09/20 11:57: Bedside Glucose (Misc Panel) 326H 11/09/20 16:26: Bedside Glucose (Misc Panel) 436H CBC/BMP Laboratory Tests 11/09/20 06:30 Current Medications Current Medications Medications (Trade) Dose Ordered Sig/Caryn Route PRN Reason Start Time Stop Time Status Last Admin Dose Admin Acetaminophen (Tylenol Tab) 650 mg Q4H PRN PO PAIN OR FEVER 11/02/20 19:45 Al Hydrox/Mg Hydrox/Simethicone (Mylanta) 30 ml DAILY PRN PO DYSPEPSIA 11/02/20 19:45 Dexamethasone (Decadron) 40 mg DAILY IV 11/08/20 09:00 11/11/20 12:00 11/09/20 09:07 Dextrose (Dextrose 50%) 25 ml ASDIRECTED PRN IV SEE LABEL COMMENTS 11/08/20 08:00 Docusate Sodium (Colace Liquid) 100 mg BIDP PRN PO constipation 11/03/20 15:15 11/07/20 20:42 Docusate Sodium (Colace) 100 mg BID PO 11/02/20 21:00 11/03/20 15:15 DC Glucagon (Glucagon) 1 mg ASDIRECTED PRN SC SEE LABEL COMMENTS 11/08/20 08:00 Glucose (Glucose) 16 GM ASDIRECTED PRN PO SEE LABEL COMMENTS 11/08/20 08:00 Heparin Sodium (Heparin (Flush)) 200 units ASDIRECTED PRN IV SEE LABEL COMMENTS 11/08/20 14:15 11/09/20 06:17 Heparin Sodium (Heparin (Flush)) 200 units PICC IV 11/08/20 18:00 11/09/20 16:51 Home Med (Med Rec Complete!) ASDIRECTED XX 11/02/20 19:00 11/02/20 18:53 DC Immune Globulin / IV Miscellaneous Supplies 0 ml @ 0 mls/hr ASDIRECTED IV 11/02/20 19:45 11/02/20 22:23 DC Insulin Detemir (Levemir Insulin) 8 units QAM SC 11/10/20 09:00 Insulin Human Lispro (HumaLOG INSULIN) SEE PROTOCOL TABLE AC SC 11/08/20 12:00 11/09/20 16:51 Magnesium Hydroxide (Milk Of Magnesia) 30 ml DAILY PRN PO CONSTIPATION 11/02/20 19:45 Metoprolol Tartrate (Lopressor) 12.5 mg BID PO 11/05/20 21:00 11/06/20 18:22 DC 11/06/20 08:04 Metoprolol Tartrate (Lopressor) 25 mg BID PO 11/06/20 21:00 11/07/20 09:14 DC 11/06/20 20:22 Metoprolol Tartrate (Lopressor) 50 mg Q6H PO 11/07/20 09:00 11/09/20 14:24 Pantoprazole Sodium (Protonix) 40 mg DAILY PO 11/03/20 09:00 11/09/20 08:23 Prednisone (Deltasone) 50 mg DAILY PO 11/03/20 05:00 11/03/20 04:52 DC Prednisone (Deltasone) 50 mg DAILY PO 11/04/20 09:00 11/08/20 07:53 DC 11/06/20 08:04 Sodium Chloride (Saline Lock Flush) 10 ml ASDIRECTED PRN IV SEE LABEL COMMENTS 11/08/20 14:15 11/09/20 06:17 Sodium Chloride (Saline Lock Flush) 10 ml PICC IV 11/08/20 18:00 11/09/20 16:51 Allergies Coded Allergies: No Known Allergies (Unverified , 10/13/20) Dagmar Dhillon MD Nov 09, 2020 19:26
[2020-11-09 22:00] VITALS: BP 129/85
[2020-11-10] MEDS: METOPROLOL TART 50 MG TAB PO SCH ×4 (03:20→21:44)
[2020-11-10 06:00] VITALS: BP 129/83
[2020-11-10] MEDS: SODIUM CHLORIDE 0.9% INJ 10 ML SYR IV SCH ×2 (06:03→16:47)
[2020-11-10 07:30] LABS: HEMATOCRIT 30.1 % (36.0-47.0); HEMOGLOBIN 9.8 g/dl (12.0-15.5); MEAN CORPUSCULAR HEMOGLOBIN 30.4 pg (27.0-33.0); MEAN CORPUSCULAR HGB CONC 32.6 g/dl (32.0-36.5); MEAN CORPUSCULAR VOLUME 93.5 fl (80.0-96.0); RED BLOOD COUNT 3.22 10^6/uL (4.00-5.40); WHITE BLOOD COUNT 24.2 10^3/uL (4.0-10.0)
[2020-11-10 07:50] LABS: PLATELET COUNT, AUTOMATED 50 10^3/uL (150-450)
[2020-11-10] MEDS: dexameTHASONE 20MG/5ML VIAL (J1100 PER 1MG) IV SCH (08:03)
[2020-11-10 08:04] LABS: ALBUMIN 2.7 GM/DL (3.2-5.2); ALT/SGPT 28 U/L (12-78); BILIRUBIN,TOTAL 0.7 MG/DL (0.2-1.0); BLOOD UREA NITROGEN 21 MG/DL (7-18); CALCIUM LEVEL 8.6 MG/DL (8.5-10.1); CARBON DIOXIDE LEVEL 31 MEQ/L (21-32); CHLORIDE LEVEL 99 MEQ/L (98-107); CREATININE FOR GFR 0.74 MG/DL (0.55-1.30); GLOMERULAR FILTRATION RATE > 60.0 (>60); GLUCOSE, FASTING 200 MG/DL (70-100); POTASSIUM SERUM 3.9 MEQ/L (3.5-5.1); SODIUM LEVEL 134 MEQ/L (136-145); TOTAL PROTEIN 8.6 GM/DL (6.4-8.2)
[2020-11-10] MEDS: PANTOPRAZOLE 40MG TAB (PROTONIX) PO SCH (08:04)
[2020-11-10] MEDS: HumaLOG INSULIN (NovoLOG) PER UNIT SC SCH ×3 (08:04→16:47)
[2020-11-10] MEDS ORDERED: LEVEMIR (INSULIN DETEMIR) 1 UNITS/0.01ML SC SCH ×2 (09:00)
[2020-11-10 14:00] VITALS: BP 127/73
--- NOTE | 2020-11-10 16:06 | IPNPDOC ---
Date Seen The patient was seen on 11/10/20. Progress Note SUBJECTIVE: PLTs improved to 50, no bleeding episodes. BS elevated in 200's-300, adjusted levemir. No increased rashes, bleeding. Patient in good spirits. OBJECTIVE: PHYSICAL EXAM: VS: Please see below General: NAD, lying comfortably in bed, non verbal- baseline. Grandmother at bedside, speaks to her in Hebrew HEENT: NC/AT, EOMI, PERRL, small conjunctival hemorrhage R eye < 5 mm, wound at base of left nares improving Lungs: CTA B/L Heart: +S1S2, RRR Abd: soft, NT, ND, +BS INTEGUMENTARY: Large purpuric lesion on the left upper ext, decreasing increased in size, nontender and nonblanching. Multiple small areas of petechial rashes on lower legs and arm- not new but not increase. Ext: Mild edema LUE, no cyanosis or clubbing Neuro: No sensory or motor deficits, no focal deficits. LABORATORY: Please see below IMAGING: Echocardiogram: EF 55-65%, mild aortic and mitral regurgitation- called to me by Dr. Crowell Official transcribed report pending MICRO: None ASSESSMENT: 25 yo F with a hx of ITP and intellectual disability, admitted for thrombocytopenia (PLT 1). Hematology recommending prednisone, IVIG and PLT transfusion. Patient has had two admission for the same in the past 8 weeks. Previously treated in [place] and [place]. 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 Duncan. -Hematology following: R/o concomitant hematological condition such as MDS with biopsy -Per Dr. Duncan, transfuse if PLTs <10. -C/w IV dexamethasone 40 mg daily x 2 additional days. After those 2 days, restart prednisone 50 mg PO daily. Will update hematology in the AM. -F/u CBC daily #Sinus tachycardia -HR and BP improved with increasing BB; however, still slightly tachycardic. -Echo above -ECG: Sinus tachycardia -Echo above -Discussed case with Dr. Zambrano, watch for now -C/w metoprolol 50 mg PO Q6H #Hyperglycemia likely steroid induced -BS 200-300's -HbA1c 5.5, lipid panel unremarkable -Increased levemir AM, ISS with FS AC/HS, consistent carb diet #HTN -Improved with BB -No prior dx -C/w BB #Epistaxis -Nose wound on base of left nostril present- improved significantly -PLTs 20 but no other s/s of bleeding -H/H stable -Monitor closely #L arm ecchymosis/purpuric lesions, purpuric rashes on body likely 2/2 to ITP ab ove-improving -No pain, tenderness on exam. Not blanching -Doppler/US unrevealing -Not worsened -C/w treatment plan above #Leukocytosis likely 2/2 steroid use for ITP -WBC 24.2, afebrile -Daily CBC #DVT ppx -SCDs. TEDs. DISPOSITION: Heme/onc following and will update in the AM. Plan is d/c home when medically improved. VS, I&O, 24H, Fishbone Vital Signs/I&O Vital Signs Date Time Temp Pulse Resp B/P (MAP) Pulse Ox O2 Delivery O2 Flow Rate FiO2 11/10/20 14:35 100 128/74 11/10/20 14:00 97.7 16 98 11/10/20 06:00 Room Air I&O- Last 24 Hours up to 6 AM 11/10/20 06:00 Intake Total 1560 ml Output Total 675 ml Balance 885 ml Laboratory Data 24H LABS Laboratory Tests 2 11/09/20 16:26: Bedside Glucose (Misc Panel) 436H 11/10/20 03:25: Bedside Glucose (Misc Panel) 215H 11/10/20 06:46: Nucleated Red Blood Cells % (auto) 1.0H, Immature Platelet Fraction 15.2H, Anion Gap 4L, Glomerular Filtration Rate > 60.0, Calcium Level 8.6, Total Bilirubin 0.7, Aspartate Amino Transf (AST/SGOT) 21, Alanine Aminotransferase (ALT/SGPT) 28, Alkaline Phosphatase 62, Total Protein 8.6H, Albumin 2.7L, Albumin/Globulin Ratio 0.5L 11/10/20 07:54: Bedside Glucose (Misc Panel) 248H 11/10/20 09:30: Bedside Glucose (Misc Panel) 296H 11/10/20 11:31: Bedside Glucose (Misc Panel) 312H CBC/BMP Laboratory Tests 11/10/20 06:46 Current Medications Current Medications Medications (Trade) Dose Ordered Sig/Caryn Route PRN Reason Start Time Stop Time Status Last Admin Dose Admin Acetaminophen (Tylenol Tab) 650 mg Q4H PRN PO PAIN OR FEVER 11/02/20 19:45 Al Hydrox/Mg Hydrox/Simethicone (Mylanta) 30 ml DAILY PRN PO DYSPEPSIA 11/02/20 19:45 Dexamethasone (Decadron) 40 mg DAILY IV 11/08/20 09:00 11/11/20 12:00 11/10/20 08:03 Dextrose (Dextrose 50%) 25 ml ASDIRECTED PRN IV SEE LABEL COMMENTS 11/08/20 08:00 Docusate Sodium (Colace Liquid) 100 mg BIDP PRN PO constipation 11/03/20 15:15 11/07/20 20:42 Docusate Sodium (Colace) 100 mg BID PO 11/02/20 21:00 11/03/20 15:15 DC Glucagon (Glucagon) 1 mg ASDIRECTED PRN SC SEE LABEL COMMENTS 11/08/20 08:00 Glucose (Glucose) 16 GM ASDIRECTED PRN PO SEE LABEL COMMENTS 11/08/20 08:00 Heparin Sodium (Heparin (Flush)) 200 units ASDIRECTED PRN IV SEE LABEL COMMENTS 11/08/20 14:15 11/09/20 06:17 Heparin Sodium (Heparin (Flush)) 200 units PICC IV 11/08/20 18:00 11/10/20 06:03 Home Med (Med Rec Complete!) ASDIRECTED XX 11/02/20 19:00 11/02/20 18:53 DC Immune Globulin / IV Miscellaneous Supplies 0 ml @ 0 mls/hr ASDIRECTED IV 11/02/20 19:45 11/02/20 22:23 DC Insulin Detemir (Levemir Insulin) 8 units QAM SC 11/10/20 09:00 11/09/20 19:24 DC Insulin Detemir (Levemir Insulin) 12 units QAM SC 11/10/20 09:00 11/10/20 08:03 Insulin Human Lispro (HumaLOG INSULIN) SEE PROTOCOL TABLE AC SC 11/08/20 12:00 11/10/20 11:36 Magnesium Hydroxide (Milk Of Magnesia) 30 ml DAILY PRN PO CONSTIPATION 11/02/20 19:45 Metoprolol Tartrate (Lopressor) 12.5 mg BID PO 11/05/20 21:00 11/06/20 18:22 DC 11/06/20 08:04 Metoprolol Tartrate (Lopressor) 25 mg BID PO 11/06/20 21:00 11/07/20 09:14 DC 11/06/20 20:22 Metoprolol Tartrate (Lopressor) 50 mg Q6H PO 11/07/20 09:00 11/10/20 14:35 Pantoprazole Sodium (Protonix) 40 mg DAILY PO 11/03/20 09:00 11/10/20 08:04 Prednisone (Deltasone) 50 mg DAILY PO 11/03/20 05:00 11/03/20 04:52 DC Prednisone (Deltasone) 50 mg DAILY PO 11/04/20 09:00 11/08/20 07:53 DC 11/06/20 08:04 Sodium Chloride (Saline Lock Flush) 10 ml ASDIRECTED PRN IV SEE LABEL COMMENTS 11/08/20 14:15 11/09/20 06:17 Sodium Chloride (Saline Lock Flush) 10 ml PICC IV 11/08/20 18:00 11/10/20 06:03 Allergies Coded Allergies: No Known Allergies (Unverified , 10/13/20) Dagmar Dhillon MD Nov 10, 2020 16:06
[2020-11-10 22:00] VITALS: BP 130/76
[2020-11-11] MEDS: METOPROLOL TART 50 MG TAB PO SCH ×5 (02:17→21:24)
[2020-11-11] MEDS: SODIUM CHLORIDE 0.9% INJ 10 ML SYR IV SCH ×2 (05:04→17:18)
[2020-11-11 06:00] VITALS: BP 129/83
[2020-11-11 06:22] LABS: HEMATOCRIT 31.1 % (36.0-47.0); HEMOGLOBIN 10.2 g/dl (12.0-15.5); MEAN CORPUSCULAR HEMOGLOBIN 30.7 pg (27.0-33.0); MEAN CORPUSCULAR HGB CONC 32.8 g/dl (32.0-36.5); MEAN CORPUSCULAR VOLUME 93.7 fl (80.0-96.0); RED BLOOD COUNT 3.32 10^6/uL (4.00-5.40); WHITE BLOOD COUNT 21.1 10^3/uL (4.0-10.0)
[2020-11-11 06:26] LABS: PLATELET COUNT, AUTOMATED 66 10^3/uL (150-450)
[2020-11-11 06:52] LABS: ALBUMIN 2.6 GM/DL (3.2-5.2); ALT/SGPT 30 U/L (12-78); BILIRUBIN,TOTAL 0.6 MG/DL (0.2-1.0); BLOOD UREA NITROGEN 24 MG/DL (7-18); CALCIUM LEVEL 8.7 MG/DL (8.5-10.1); CARBON DIOXIDE LEVEL 27 MEQ/L (21-32); CHLORIDE LEVEL 97 MEQ/L (98-107); CREATININE FOR GFR 0.84 MG/DL (0.55-1.30); GLOMERULAR FILTRATION RATE > 60.0 (>60); GLUCOSE, FASTING 240 MG/DL (70-100); POTASSIUM SERUM 4.2 MEQ/L (3.5-5.1); SODIUM LEVEL 131 MEQ/L (136-145); TOTAL PROTEIN 8.6 GM/DL (6.4-8.2)
[2020-11-11] MEDS: dexameTHASONE 20MG/5ML VIAL (J1100 PER 1MG) IV SCH (08:42)
[2020-11-11] MEDS: HumaLOG INSULIN (NovoLOG) PER UNIT SC SCH ×3 (08:43→17:17)
[2020-11-11] MEDS: PANTOPRAZOLE 40MG TAB (PROTONIX) PO SCH (08:46)
[2020-11-11] MEDS ORDERED: LEVEMIR (INSULIN DETEMIR) 1 UNITS/0.01ML SC SCH (09:00)
--- NOTE | 2020-11-11 13:13 | IPNPDOC ---
Date Seen The patient was seen on 11/11/20. Progress Note SUBJECTIVE: Levemir incr further for BS 200-300's. Grandmother admits to making juice for granddaughter and I encouraged her, even though it was a nice gesture, to please run all fluids and snacks by nursing before giving it to patient because of her high blood sugars. PLTs improving to 66, no s/s of bleeding. No acute events overnight. OBJECTIVE: PHYSICAL EXAM: VS: Please see below General: NAD, sitting up comfortably in bed, non verbal- baseline. Grandmother at bedside, speaks to her in Qatari HEENT: NC/AT, EOMI, PERRL, small conjunctival hemorrhage R eye < 5 mm, wound at base of left nares improving Lungs: CTA B/L Heart: +S1S2, RRR Abd: soft, NT, ND, +BS INTEGUMENTARY: Large purpuric lesion on the left upper ext, decreasing increased in size, nontender and nonblanching. Multiple small areas of petechial rashes on lower legs and arm- not new but decreased in size as wll. Ext: Mild edema LUE, no cyanosis or clubbing Neuro: No sensory or motor deficits, no focal deficits. LABORATORY: Please see below IMAGING: Echocardiogram: EF 55-65%, mild aortic and mitral regurgitation- called to me by Dr. Crowell Official transcribed report pending MICRO: None ASSESSMENT: 25 yo F with a hx of ITP and intellectual disability, admitted for thrombocytopenia (PLT 1). Hematology recommending prednisone, IVIG and PLT transfusion. Patient has had two admission for the same in the past 8 weeks. Previously treated in [place] and [place]. 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 Duncan. -Per Dr. Duncan, transfuse if PLTs <10. -C/w IV dexamethasone 40 mg daily x 1 additional days. After 1 days, prednisone 50 mg PO daily to start. -Hematology following: R/o concomitant hematological condition such as MDS with biopsy. TB with Dr. Duncan if needed -F/u CBC daily #Sinus tachycardia -HR and BP improved with increasing BB; however, still slightly tachycardic. -Echo above -ECG: Sinus tachycardia -Discussed case with Dr. Espinal: Does not appear to be cardiac mediated. Can consider 24 hour catecholamine testing or have patient f/u with endocrinology o/p. -F/u TSH -For now c/w metoprolol 50 mg PO Q6H #Hyperglycemia likely steroid induced -BS 200-300's. Grandmother admits to making juice for granddaughter (beets, guava, pepper) so perhaps this is incr BS. Advised grandmother to run all drinks and snacks by nursing prior to giving to patient. -HbA1c 5.5, lipid panel unremarkable -Increased levemir AM, ISS with FS AC/HS, consistent carb diet #Hyponatremia likely 2/2 to incr u/o with hyperglycemia -Ns 131, corrected with blood sugar 133 -Continue to correct hyperglycemia above, will improve when IV dexa switches over to PO prednisone on 11/12/20 -Monitor with daily labs. -Starting on gentle IVF hydration today #HTN -Improved with BB -No prior dx -C/w BB #L arm ecchymosis/purpuric lesions, purpuric rashes on body likely 2/2 to ITP above-improving -No pain, tenderness on exam. Not blanching -Doppler/US unrevealing -Not worsened -C/w treatment plan above #Leukocytosis likely 2/2 steroid use for ITP -WBC 21.1, afebrile -Daily CBC #DVT ppx -SCDs. TEDs. Resolved issues: #Epistaxis DISPOSITION: Heme/onc (Dr. Duncan) is patient's heme/onc and has been getting updated regularly. Blood sugars will need to be controlled also prior to discharge. Plan is d/c home when medically improved. VS, I&O, 24H, Fishbone Vital Signs/I&O Vital Signs Date Time Temp Pulse Resp B/P (MAP) Pulse Ox O2 Delivery O2 Flow Rate FiO2 11/11/20 08:46 77 120/78 11/11/20 06:00 97.9 16 98 Room Air I&O- Last 24 Hours up to 6 AM 11/11/20 06:00 Intake Total 2580 ml Output Total 1225 ml Balance 1355 ml Laboratory Data 24H LABS Laboratory Tests 2 11/10/20 16:43: Bedside Glucose (Misc Panel) 299H 11/10/20 19:50: Bedside Glucose (Misc Panel) 251H 11/11/20 06:02: Nucleated Red Blood Cells % (auto) 1.2H, Anion Gap 7L, Glomerular Filtration Rate > 60.0, Calcium Level 8.7, Total Bilirubin 0.6, Aspartate Amino Transf (AST/SGOT) 17, Alanine Aminotransferase (ALT/SGPT) 30, Alkaline Phosphatase 68, Total Protein 8.6H, Albumin 2.6L, Albumin/Globulin Ratio 0.4L 11/11/20 12:22: Bedside Glucose (Misc Panel) 303H CBC/BMP Laboratory Tests 11/11/20 06:02 Current Medications Current Medications Medications (Trade) Dose Ordered Sig/Caryn Route PRN Reason Start Time Stop Time Status Last Admin Dose Admin Acetaminophen (Tylenol Tab) 650 mg Q4H PRN PO PAIN OR FEVER 11/02/20 19:45 Al Hydrox/Mg Hydrox/Simethicone (Mylanta) 30 ml DAILY PRN PO DYSPEPSIA 11/02/20 19:45 Dexamethasone (Decadron) 40 mg DAILY IV 11/08/20 09:00 11/11/20 12:00 DC 11/11/20 08:42 Dextrose (Dextrose 50%) 25 ml ASDIRECTED PRN IV SEE LABEL COMMENTS 11/08/20 08:00 Docusate Sodium (Colace Liquid) 100 mg BIDP PRN PO constipation 11/03/20 15:15 11/07/20 20:42 Docusate Sodium (Colace) 100 mg BID PO 11/02/20 21:00 11/03/20 15:15 DC Glucagon (Glucagon) 1 mg ASDIRECTED PRN SC SEE LABEL COMMENTS 11/08/20 08:00 Glucose (Glucose) 16 GM ASDIRECTED PRN PO SEE LABEL COMMENTS 11/08/20 08:00 Heparin Sodium (Heparin (Flush)) 200 units ASDIRECTED PRN IV SEE LABEL COMMENTS 11/08/20 14:15 11/09/20 06:17 Heparin Sodium (Heparin (Flush)) 200 units PICC IV 11/08/20 18:00 11/11/20 05:05 Home Med (Med Rec Complete!) ASDIRECTED XX 11/02/20 19:00 11/02/20 18:53 DC Immune Globulin / IV Miscellaneous Supplies 0 ml @ 0 mls/hr ASDIRECTED IV 11/02/20 19:45 11/02/20 22:23 DC Insulin Detemir (Levemir Insulin) 8 units QAM SC 11/10/20 09:00 11/09/20 19:24 DC Insulin Detemir (Levemir Insulin) 12 units QAM SC 11/10/20 09:00 11/10/20 16:05 DC 11/10/20 08:03 Insulin Detemir (Levemir Insulin) 18 units QAM SC 11/11/20 09:00 11/11/20 08:43 Insulin Human Lispro (HumaLOG INSULIN) SEE PROTOCOL TABLE AC SC 11/08/20 12:00 11/11/20 12:28 Magnesium Hydroxide (Milk Of Magnesia) 30 ml DAILY PRN PO CONSTIPATION 11/02/20 19:45 Metoprolol Tartrate (Lopressor) 12.5 mg BID PO 11/05/20 21:00 11/06/20 18:22 DC 11/06/20 08:04 Metoprolol Tartrate (Lopressor) 25 mg BID PO 11/06/20 21:00 11/07/20 09:14 DC 11/06/20 20:22 Metoprolol Tartrate (Lopressor) 50 mg Q6H PO 11/07/20 09:00 11/11/20 08:46 Pantoprazole Sodium (Protonix) 40 mg DAILY PO 11/03/20 09:00 11/11/20 08:46 Prednisone (Deltasone) 50 mg DAILY PO 11/03/20 05:00 11/03/20 04:52 DC Prednisone (Deltasone) 50 mg DAILY PO 11/04/20 09:00 11/08/20 07:53 DC 11/06/20 08:04 Prednisone (Deltasone) 50 mg DAILY PO 11/12/20 09:00 Sodium Chloride (Saline Lock Flush) 10 ml ASDIRECTED PRN IV SEE LABEL COMMENTS 11/08/20 14:15 11/09/20 06:17 Sodium Chloride (Saline Lock Flush) 10 ml PICC IV 11/08/20 18:00 11/11/20 05:04 Allergies Coded Allergies: No Known Allergies (Unverified , 10/13/20) Dagmar Dhillon MD Nov 11, 2020 13:13
[2020-11-11] MEDS: NS 1,000 ML IV SCH ×2 (13:38→22:49)
[2020-11-11 14:00] VITALS: BP 118/71
[2020-11-11 14:59] LABS: HEMATOCRIT 31.9 % (36.0-47.0); HEMOGLOBIN 10.6 g/dl (12.0-15.5); MEAN CORPUSCULAR HGB CONC 33.2 g/dl (32.0-36.5); MEAN CORPUSCULAR VOLUME 93.3 fl (80.0-96.0); RED BLOOD COUNT 3.42 10^6/uL (4.00-5.40); WHITE BLOOD COUNT 16.7 10^3/uL (4.0-10.0)
[2020-11-11 15:56] LABS: PLATELET COUNT, AUTOMATED 88 10^3/uL (150-450)
[2020-11-11] MEDS: DOCUSATE SOD LIQ 100MG/10ML UDC PO PRN (21:24)
[2020-11-11 22:00] VITALS: BP 125/79
[2020-11-12 00:23] LABS: HEMATOCRIT 32.4 % (36.0-47.0); HEMOGLOBIN 10.4 g/dl (12.0-15.5); MEAN CORPUSCULAR HEMOGLOBIN 30.6 pg (27.0-33.0); MEAN CORPUSCULAR HGB CONC 32.1 g/dl (32.0-36.5); MEAN CORPUSCULAR VOLUME 95.3 fl (80.0-96.0); PLATELET COUNT, AUTOMATED 65 10^3/uL (150-450); WHITE BLOOD COUNT 14.3 10^3/uL (4.0-10.0)
[2020-11-12] MEDS: METOPROLOL TART 50 MG TAB PO SCH ×4 (02:12→20:42)
[2020-11-12] MEDS: SODIUM CHLORIDE 0.9% INJ 10 ML SYR IV SCH ×2 (05:10→17:36)
[2020-11-12 06:00] VITALS: BP 112/69
--- NOTE | 2020-11-12 07:28 | ECHO ---
DATE OF PROCEDURE: 11/06/2020 Age: 25 Gender: Female REFERRING PHYSICIAN: Dr. Dagmar Dhillon PATIENT LOCATION: Room 4219 REASON FOR STUDY: Hypertension, tachycardia. 2D MEASUREMENTS: IVS 1.1 cm LV 3.4 cm LVPW 0.85 cm LA 2.5 cm Aorta 2.4 cm IVC 1.2 cm DOPPLER MEASUREMENT Peak velocity across the aortic valve 1.4 m/s Peak velocity across the LVOT 0.92 m/s Peak gradient across the aortic valve 8 mmHg Mitral E 1.0 Mitral A 1.1 with a ratio of about 1.0 Maximum tricuspid valve velocity 2.0 m/s 2D COMMENTS: 1. Normal left ventricular size, wall thickness, and normal global left ventricular systolic function with a hyperdynamic left ventricle. The estimated left ventricular systolic ejection fraction is 65% to 70%. 2. Normal left atrium. Normal right atrium and right ventricle. 3. The atrial septum appeared to be normal without evidence of defect or shunt. 4. Normal aortic root. 5. No pericardial effusion seen. 6. Minimally calcified aortic valve with normal leaflet excursion. Mildly calcified mitral annulus with normal anterior mitral valve leaflet motion. Normal tricuspid valve and pulmonic valve. The proximal pulmonary artery branches were not well visualized. 7. The inferior vena cava was normal in size, central venous pressure is most likely normal. DOPPLER: It detects trace aortic regurgitation, trace mitral regurgitation, and tract tricuspid regurgitation. The calculated pulmonary artery systolic pressure was normal. Assessment of the left ventricular diastolic function also was normal. IMPRESSION: 1. Normal global left ventricular systolic and diastolic function with a hyperdynamic left ventricle. 2. Aortic valve sclerosis with trace aortic regurgitation, but no aortic stenosis. 3. Mitral annular calcification with trace mitral regurgitation. 4. Trace tricuspid regurgitation with a normal calculated pulmonary artery systolic pressure. [facility]
[2020-11-12 08:23] LABS: ALBUMIN 2.4 GM/DL (3.2-5.2); ALT/SGPT 31 U/L (12-78); BILIRUBIN,TOTAL 0.6 MG/DL (0.2-1.0); BLOOD UREA NITROGEN 22 MG/DL (7-18); CALCIUM LEVEL 8.3 MG/DL (8.5-10.1); CARBON DIOXIDE LEVEL 28 MEQ/L (21-32); CHLORIDE LEVEL 102 MEQ/L (98-107); CREATININE FOR GFR 0.68 MG/DL (0.55-1.30); GLOMERULAR FILTRATION RATE > 60.0 (>60); GLUCOSE, FASTING 204 MG/DL (70-100); SODIUM LEVEL 135 MEQ/L (136-145); TOTAL PROTEIN 7.4 GM/DL (6.4-8.2)
[2020-11-12] MEDS: HumaLOG INSULIN (NovoLOG) PER UNIT SC SCH ×3 (08:52→17:35)
[2020-11-12] MEDS: predniSONE 50 MG TAB PO SCH (08:53)
[2020-11-12] MEDS: NS 1,000 ML IV SCH ×2 (08:53→19:43)
[2020-11-12] MEDS: PANTOPRAZOLE 40MG TAB (PROTONIX) PO SCH (08:53)
[2020-11-12] MEDS ORDERED: LEVEMIR (INSULIN DETEMIR) 1 UNITS/0.01ML SC SCH (09:00)
--- NOTE | 2020-11-12 09:55 | CR ---
CONSULTATION DATE: 11/12/2020 REASON FOR CONSULTATION: Rectal bleeding. HISTORY OF PRESENT ILLNESS: Patient is a 25-year-old female with intellectual disability and ITP recently admitted to the hospital on the due to recurrent nose bleeds as well as thrombocytopenia. She is currently being treated with steroids with Dr. Duncan. Her platelets have improved up into the 60s. However, she had a large bowel movement yesterday with some blood in it so I was called for possible evaluation. Over the last 24 hours, her hemoglobins have remained stable. They have not dropped, and she had another bowel movement overnight according to the nurse that was brown, no more blood in it. The bowel movement that she did have the other day was brown with just some bright red blood around the outside of it. Patient has not shown any signs of distress. No other problems with this in the past. The grandmother is at the bedside. She says there is a remote family history of colon cancer but nothing recent. There is a family history of IBS. Otherwise no other issues with her, and she has never had any problems in the past. PAST MEDICAL HISTORY: 1. Intellectual disability. 2. Autism. 3. ITP. PAST SURGICAL HISTORY: Teeth extraction. SOCIAL HISTORY: Negative. FAMILY HISTORY: Noncontributory. ALLERGIES: None. HOME MEDICATIONS: Please see med rec. REVIEW OF SYSTEMS: Unable to obtain. PHYSICAL EXAMINATION: General: Patient is awake and alert. Vitals: Temperature 97.3, pulse 89, respirations 18, blood pressure 112/69, pulse ox 98% on room air. HEENT: Pupils equally round and reactive to light and accommodation. Heart: S1 and S2, regular rate and rhythm. Lungs: Clear to auscultation bilaterally. Abdomen: Soft, nontender, nondistended. Extremities: No clubbing, cyanosis, or edema. LABORATORY DATA: White count 14.3, hemoglobin 10.4. It was 10.2 and 10.6 yesterday. Platelets 65. ASSESSMENT AND PLAN: Patient is a 25-year-old female with ITP currently on steroids status post one episode of bright red blood with her stool yesterday. Hemoglobins have remained stable. At this time, the most likely cause was internal hemorrhoids. Recommendation at this time is high fiber diet along with Anusol suppositories b.i.d. If she has recurrent bleeding, we can attempt to schedule her for a colonoscopy with hemorrhoid banding at the same time. Otherwise there is no need for any emergent intervention at this time.
[2020-11-12] MEDS: ANUSOL HC 25MG SUPP PR SCH ×3 (11:58→20:52)
--- NOTE | 2020-11-12 13:03 | IPNPDOC ---
Text Note Date of Service The patient was seen on 11/12/20. NOTE SUBJECTIVE: Patient seen and examined at bedside. No acute overnight events reported. No new medical complaints this morning. Grandmother at bedside. OBJECTIVE: VS: Please see below General: NAD, sitting up comfortably in bed, non verbal- baseline. Grandmother at bedside, speaks to her in Persian HEENT: NC/AT Lungs: CTA B/L Heart: +S1S2, RRR Abd: soft, NT, ND, +BS INTEGUMENTARY: Large purpuric lesion on the left upper ext, decreasing increased in size, nontender and nonblanching. Multiple small areas of petechial rashes on lower legs and arm- not new but decreased in size as wll. Ext: Mild edema LUE, no cyanosis or clubbing Neuro: No sensory or motor deficits, no focal deficits. ASSESSMENT: 25 yo F with PMHx of ITP and intellectual disability, admitted for thrombocytopenia (PLT 1). Hematology recommending prednisone, IVIG and PLT transfusion. Patient has had two admission for the same in the past 8 weeks. Previously treated in [place] and [place]. 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 Duncan. -Per Dr. Duncan, transfuse if PLTs <10. -started prednisone 50mg daily today -Hematology following: R/o concomitant hematological condition such as MDS with biopsy -F/u CBC daily #Sinus tachycardia -HR and BP improved with increasing BB; however, still slightly tachycardic. -Echo above -ECG: Sinus tachycardia -Discussed case with Dr. Espinal: Does not appear to be cardiac mediated -F/u TSH -For now c/w metoprolol 50 mg PO Q6H #Hyperglycemia likely steroid induced -BS 200-300's. Grandmother admits to making juice for granddaughter (beets, guava, pepper) so perhaps this is incr BS. Advised grandmother to run all drinks and snacks by nursing prior to giving to patient. -HbA1c 5.5, lipid panel unremarkable -Increased levemir AM, ISS with FS AC/HS, consistent carb diet #Hyponatremia likely 2/2 to incr u/o with hyperglycemia -Ns 131, corrected with blood sugar 133 -Continue to correct hyperglycemia above, will improve when IV dexa switches over to PO prednisone on 11/12/20 -Monitor with daily labs. #HTN -Improved with BB -No prior dx -C/w BB #L arm ecchymosis/purpuric lesions, purpuric rashes on body likely 2/2 to ITP above-improving -No pain, tenderness on exam. Not blanching -Doppler/US unrevealing -Not worsened -C/w treatment plan above #Leukocytosis likely 2/2 steroid use for ITP -WBC 21.1, afebrile -Daily CBC #DVT ppx -SCDs. TEDs. Resolved issues: #Epistaxis DISPOSITION: follow up platelets, blood sugar; follow up with hematology; anticipate discharge home in 24 hours if plt stable VS,Fishbone, I+O VS, Fishbone, I+O Laboratory Tests 11/11/20 14:39 11/12/20 00:12 11/12/20 07:29 Vital Signs Date Time Temp Pulse Resp B/P (MAP) Pulse Ox O2 Delivery O2 Flow Rate FiO2 11/12/20 08:53 88 116/81 11/12/20 06:00 97.3 18 98 Room Air I&O- Last 24 Hours up to 6 AM 11/12/20 05:59 Intake Total 1900 ml Output Total 150 ml Balance 1750 ml VALENTE MARIA MD Nov 12, 2020 13:03
[2020-11-12 14:00] VITALS: BP 120/68
[2020-11-12 22:00] VITALS: BP 155/92
[2020-11-13 02:20] VITALS: BP 103/64
[2020-11-13] MEDS: METOPROLOL TART 50 MG TAB PO SCH (02:20)
[2020-11-13] MEDS: SODIUM CHLORIDE 0.9% INJ 10 ML SYR IV SCH ×2 (05:32→05:42)
[2020-11-13] MEDS: NS 1,000 ML IV SCH (05:42)
[2020-11-13 06:00] VITALS: BP 104/64
[2020-11-13 06:39] LABS: BASO % 0.2 % (0.0-1.0); HEMATOCRIT 30.4 % (36.0-47.0); HEMOGLOBIN 10.1 g/dl (12.0-15.5); LYMPH # 4.1 10^3/uL (1.5-5.0); LYMPH % 31.8 % (24.0-44.0); MEAN CORPUSCULAR HEMOGLOBIN 30.8 pg (27.0-33.0); MEAN CORPUSCULAR HGB CONC 33.2 g/dl (32.0-36.5); MEAN CORPUSCULAR VOLUME 92.7 fl (80.0-96.0); MONO # 1.3 10^3/uL (0.0-0.8); MONO % 10.2 % (0.0-5.0); NEUTROPHILS # 7.1 10^3/uL (1.5-8.5); NEUTROPHILS % 56.2 % (36.0-66.0); RED BLOOD COUNT 3.28 10^6/uL (4.00-5.40); WHITE BLOOD COUNT 12.7 10^3/uL (4.0-10.0)
[2020-11-13 06:43] LABS: PLATELET COUNT, AUTOMATED 80 10^3/uL (150-450)
[2020-11-13 06:49] LABS: ALBUMIN 2.3 GM/DL (3.2-5.2); ALT/SGPT 32 U/L (12-78); BILIRUBIN,TOTAL 0.7 MG/DL (0.2-1.0); BLOOD UREA NITROGEN 26 MG/DL (7-18); CALCIUM LEVEL 7.8 MG/DL (8.5-10.1); CARBON DIOXIDE LEVEL 31 MEQ/L (21-32); CHLORIDE LEVEL 103 MEQ/L (98-107); CREATININE FOR GFR 0.68 MG/DL (0.55-1.30); GLOMERULAR FILTRATION RATE > 60.0 (>60); GLUCOSE, FASTING 95 MG/DL (70-100); POTASSIUM SERUM 3.9 MEQ/L (3.5-5.1); SODIUM LEVEL 135 MEQ/L (136-145); TOTAL PROTEIN 6.7 GM/DL (6.4-8.2)
[2020-11-13] MEDS: HumaLOG INSULIN (NovoLOG) PER UNIT SC SCH (07:30)
[2020-11-13] MEDS: ANUSOL HC 25MG SUPP PR SCH (09:00)
[2020-11-13] MEDS: PANTOPRAZOLE 40MG TAB (PROTONIX) PO SCH (09:55)
[2020-11-13] MEDS: predniSONE 50 MG TAB PO SCH (09:55)
[2020-11-13] MEDS: SODIUM CHLORIDE 0.9% INJ 10 ML SYR IV PRN (09:55)
[2020-11-13] MEDS ORDERED: PRED50TA PO ×2 (12:59→14:19)
[2020-11-13 13:10] VITALS: BP 107/66
[2020-11-13] MEDS ORDERED: INSUDET SC ×2 (13:24→14:19)
[2020-11-13] MEDS ORDERED: INSU1MIS20 SC ×2 (13:25→14:19)
[2020-11-13] MEDS ORDERED: BLOOKIT21 XX ×2 (13:25→14:19)
[2020-11-13] MEDS ORDERED: ALCOPAD25 TOP ×2 (13:25→14:19)
[2020-11-13] MEDS ORDERED: LANC30MI XX (14:19)
[2020-11-13] MEDS ORDERED: GLUC1TES2 XX (14:35)
--- NOTE | 2020-11-13 15:05 | DS.PDOC ---
Discharge Summary General Date of Admission Nov 02, 2020 at 19:43 Date of Discharge 11/13/20 Discharge Summary PROCEDURES PERFORMED DURING STAY: [None]. DISCHARGE DIAGNOSES: #ITP #thrombocytopenia - unclear etiology #hyperglycemia #sinus tachycardia COMPLICATIONS/CHIEF COMPLAINT: Itp Thrombocytopenia. HISTORY OF PRESENT ILLNESS: 25 yo F with a hx of ITP, intellectual disability, recently relocated from [place] with grandmother (caregiver), present to ED with recurrent epistaxis. She was discharged from [facility] on 10/28/20, during which admission she had same symptoms with PLT of 1. Patient received IVIG, dexamethasone and PLT transfusion and was discharged on PO prednisone with hematology follow up. Furthermore, she had been admitted again and discharged on 10/16/20 with the same complaints. Patient re turns to ED with epistaxis and bruising on the L medial aspect of arm. Patient is non verbal due to severe autism and most of history is provided by grandmother. She does not have any acute complaints, and is otherwise at baseline in terms of mentation. Epistaxis started this morning and has resolved upon arrival to ED. Patient had been compliant with PO prednisone since discharge. PLT count on DC on 10/28/19 was 42. In ED, noted to have PLT count 1. Hgb stable > 12.Dr. Duncan was contacted from ED, recommended prednisone 50 mg daily, IVIG 1 mg/kg x 2, and PLT transfusion. Patient received prednisone in ER, PLT transfusion pending. Isolated WBC 16. NO fever, no cough, no increase in urinary frequency or urinary retention per grandmother. Patient was admitted to hospitalist service to receive IVIG infusion. HOSPITAL COURSE: . DISCHARGE MEDICATIONS: Please see below. ALLERGIES: Please see below. PHYSICAL EXAMINATION ON DISCHARGE: VITAL SIGNS: Please see below. GENERAL: HEENT: NECK: CARDIOVASCULAR EXAMINATION: RESPIRATORY EXAMINATION: ABDOMINAL EXAMINATION: EXTREMITIES: SKIN: NEUROLOGICAL EXAMINATION: PSYCHIATRIC EXAMINATION: LABORATORY DATA: Please see below. ACTIVITY: [As tolerated]. DISPOSITION: 01 Home, Self-Care. DISCHARGE INSTRUCTIONS: 1. Follow up with PC as scheduled on 11/15/20 2. Follow up with crew attendant Dr. Duncan as scheduled next week. DISCHARGE CONDITION: [Stable]. TIME SPENT ON DISCHARGE: 35 minutes. Vital Signs/I&Os Vital Signs Date Time Temp Pulse Resp B/P (MAP) Pulse Ox O2 Delivery O2 Flow Rate FiO2 11/13/20 13:10 97.7 108 16 107/66 (80) 100 Room Air I&O- Last 24 Hours up to 6 AM 11/13/20 06:00 Intake Total 4850 ml Output Total 2100 ml Balance 2750 ml Laboratory Data Labs 24H Laboratory Tests 2 11/12/20 16:43: Bedside Glucose (Misc Panel) 305H 11/12/20 19:49: Bedside Glucose (Misc Panel) 287H 11/13/20 06:06: Immature Granulocyte % (Auto) 1.6, Neutrophils (%) (Auto) 56.2, Lymphocytes (%) (Auto) 31.8, Monocytes (%) (Auto) 10.2H, Eosinophils (%) (Auto) 0.0, Basophils (%) (Auto) 0.2, Neutrophils # (Auto) 7.1, Lymphocytes # (Auto) 4.1, Monocytes # (Auto) 1.3H, Eosinophils # (Auto) 0.0, Basophils # (Auto) 0.0, Nucleated Red Blood Cells % (auto) 1.4H, Immature Platelet Fraction 7.7, Anion Gap 1L, Glomerular Filtration Rate > 60.0, Calcium Level 7.8L, Total Bilirubin 0.7, Aspartate Amino Transf (AST/SGOT) 15, Alanine Aminotransferase (ALT/SGPT) 32, Alkaline Phosphatase 62, Total Protein 6.7, Albumin 2.3L, Albumin/Globulin Ratio 0.5L 11/13/20 13:03: Bedside Glucose (Misc Panel) 218H CBC/BMP Laboratory Tests 11/13/20 06:06 FSBS Laboratory Tests Test 11/12/20 16:43 11/12/20 19:49 11/13/20 13:03 Range/Units Bedside Glucose (Misc Panel) 305 287 218 70-105 MG/DL Discharge Medications Scheduled Blood Sugar Diagnostic (Advanced Glucose Test Strips) 1 Each Strip, 1 STRIP XX ASDIRECTED Insulin Detemir (Levemir) 100 Unit/1 Ml Vial, 5 UNITS SC DAILY as directed Prednisone (Prednisone) 50 Mg Tablet, 50 MG PO DAILY Allergies Coded Allergies: No Known Allergies (Unverified , 10/13/20) VALENTE MARIA MD Nov 13, 2020 15:05
[2020-11-20] MEDS ORDERED: FAMO1TAB25 PO (16:15)
[2020-11-20] MEDS ORDERED: PRED20TA PO (16:15)
[2020-12-05] MEDS ORDERED: PRED5TA PO (10:35)
== END 2020-11-13 14:52 | disposition home or self-care (01) | DRG 661 ==
LOC: M ED 15:28 → M ED INP 19:43 → M MSPAV 11-03 04:18
PROVIDERS: ADMIT Family Medicine; ATTEND Internal Medicine
PROC: 30233R1 Transfusion of Nonautologous Platelets into Peripheral Vein, Percutaneous Approach (ICD-10-PCS; principal; 2020-11-03)
PROC: 07DR3ZX Extraction of Iliac Bone Marrow, Percutaneous Approach, Diagnostic (ICD-10-PCS; 2020-11-06)
PROC: 02HV33Z Insertion of Infusion Device into Superior Vena Cava, Percutaneous Approach (ICD-10-PCS; 2020-11-08)
DX: D69.3 Immune thrombocytopenic purpura (principal); F79 Unspecified intellectual disabilities; F84.0 Autistic disorder; Z79.52 Long term (current) use of systemic steroids; R00.0 Tachycardia, unspecified; I10 Essential (primary) hypertension; D72.829 Elevated white blood cell count, unspecified; R04.0 Epistaxis; E87.1 Hypo-osmolality and hyponatremia; R73.9 Hyperglycemia, unspecified